=== PATIENT | female | born 1965 | race Caucasian/White ===

== ENCOUNTER → 2019-07-13 11:03 | Outpatient (CLI) | payer OTHER, SELFPAY ==
--- NOTE | ~2019-07-13 | MM_ITS ---
EXAMINATION: MM screening [facility] BI w [facility] HISTORY: Screening mammogram TECHNIQUE: Craniocaudal and mediolateral oblique 3-D tomosynthesis images were obtained and synthetic 2-D images were generated. CAD analysis was submitted and interpreted. COMPARISON: 07/06/2018, 06/01/2017, 05/05/2016 BREAST PARENCHYMAL COMPOSITION: The breasts are heterogeneously dense, which may obscure small masses . FINDINGS: There is no evidence of suspicious mass, calcification, or architectural distortion to sugg est malignancy in either breast. There has been no suspicious interval change. IMPRESSION: 1. No mammographic evidence of malignancy. 2. Recommend routine screening mammography in one year. BI-RADS Category 1: Negative Reviewed, dictated and finalized at location A.
--- NOTE | ~2019-07-13 | DEXA_ITS ---
Bone Density Report Name: Marycarmen Miguel Age: 53 Sex: Female Ethnicity: White Date of : 1965 Indication: postmenopausal; screening for osteoporosis; hysterectomy; Referring Provider: Yonis, Rayna Study: Bone densitometry was performed. Exam Date: July 13, 2019 Accession number: [id number] Bone Density: Region BMD T-score Z-score Classification AP Spine (L1-L4) 1.152 1.0 2.0 Normal Femoral Neck (Right) 0.941 0.8 1.9 Normal Total Hip (Right) 1.115 1.4 2.1 Normal World Health Organization criteria for BMD impression classify patients as: Normal (T-score at or above -1.0), Osteopenia (T-score between -1.0 and -2.5), or Osteoporosis (T-score at or below -2.5). 10-year Fracture Risk: FRAX not reported because: All T-scores for Spine Total, Hip Total, Femoral Neck at or above -1.0 Previous Exams: Region Exam Age BMD T-score BMD Change BMD Change Date g/cm2 vs Baseline vs Previous AP Spine(L1-L4) 07/13/2019 53 1.152 1.0 -0.046 -0.047 12/04/2015 50 1.200 1.4 0.002 0.002 10/04/2010 45 1.198 1.4 Total Hip(Right) 07/13/2019 53 1.115 1.4 -0.008 -0.024 12/04/2015 50 1.139 1.6 0.016 0.016 10/04/2010 45 1.123 1.5 *Denotes significance at 95% confidence level, LSC for AP Spine = 0.022 g/cm2, LSC for Total Hip = 0.027 g/cm2 Clinical Information Provided by Patient: Has used the following medications: Vitamin D, Calcium Has the following medical conditions: Hysterectomy Patient maximum height was 66.0 Menopause Age: 41 No regular weight bearing exercise Drinks caffeinated beverages Onset of menses at age 11 Number of children 1 Impression: The patient has normal bone mass. No significant bone loss was observed. Discussion: BONE DENSITY IS ABOVE THE MINIMUM DESIRABLE LEVEL AT ALL SKELETAL SITES TESTED. This patient?s bone mineral density is above the minimum desirable level (T-score -1.0 or better) at all sites measured. The patient should follow a healthful lifestyle (good nutrition with adequate calcium and vitamin D, and appropriate weight-bearing exercise). Follow-Up: Consider repeating this study in 5 years or sooner if there is some new clinical indication. Reported by: [facility] on 07/13/2019 11:53:00 AM. Reviewed, dictated and finalized at location Brian MUSTAFA
== END ==
PROVIDERS: Visit Provider Nurse Practitioner Family
DX: Z12.31 Encounter for screening mammogram for malignant neoplasm of breast (principal); Z78.0 Asymptomatic menopausal state
CPT/HCPCS: 77063; 77067; 77080

== ENCOUNTER → 2020-07-16 07:20 | Outpatient (CLI) | payer OTHER, SELFPAY ==
--- NOTE | ~2020-07-16 | MM_ITS ---
EXAMINATION: MM screening [facility] BI w [facility] HISTORY: Screening mammogram TECHNIQUE: Craniocaudal and mediolateral oblique 3-D tomosynthesis images were obtained and synthetic 2-D images were generated. CAD analysis was submitted and interpreted. COMPARISON: 07/13/2019, 07/06/2018, 06/01/2017 BREAST PARENCHYMAL COMPOSITION: There are scattered areas of fibroglandular density. FINDINGS: There is no evidence of suspicious mass, calcification, or architectural distortion to sugg est malignancy in either breast. There has been no suspicious interval change. IMPRESSION: 1. No mammographic evidence of malignancy. 2. Recommend routine screening mammography in one year. BI-RADS Category 1: Negative Reviewed, dictated and finalized at location A.
== END ==
PROVIDERS: Visit Provider Nurse Practitioner
DX: Z12.31 Encounter for screening mammogram for malignant neoplasm of breast (principal)
CPT/HCPCS: 77063; 77067

== ENCOUNTER → 2021-07-29 12:25 | Outpatient (CLI) | payer OTHER, SELFPAY ==
--- NOTE | ~2021-07-29 | MM_ITS ---
EXAMINATION: MM screening [facility] HISTORY: Screening TECHNIQUE: Craniocaudal and mediolateral oblique 3-D tomosynthesis images were obtained and synthetic 2-D images were generated. CAD analysis was submitted and interpreted. COMPARISON: Comparison to multiple prior studies sequentially, with oldest reviewed study dated 05/05. BREAST PARENCHYMAL COMPOSITION: There are scattered areas of fibroglandular density. FINDINGS: There is no evidence of suspicious mass, calcification, or architectural distortion to sugg est malignancy in either breast. There has been no suspicious interval change. IMPRESSION: 1. No mammographic evidence of malignancy. 2. Recommend routine screening mammography in one year. BI-RADS Category 1: Negative Reviewed, dictated and finalized at location A.
== END ==
PROVIDERS: PCP Family Medicine; Visit Provider Nurse Practitioner
DX: Z12.31 Encounter for screening mammogram for malignant neoplasm of breast (principal)
CPT/HCPCS: 77063; 77067

== ENCOUNTER → 2021-09-27 10:03 | Outpatient (CLI) | payer OTHER, SELFPAY ==
--- NOTE | ~2021-09-27 | XR_ITS ---
EXAM: XR wrist LT min 3V, XR wrist RT min 3V DATE: 09/27/2021 10:22 (accession [id number]), 09/27/2021 10:29 (accession [id number]) HISTORY: Primary osteoarthritis, bilateral wrists . COMPARISON: None available. FINDINGS: Normal mineralization. No fracture or dislocation. No lytic or blastic lesion. Mild joint space narrowing, sclerosis, and osteophytosis in the bilateral first CMC joints. Degenerative cyst fo rmation in the proximal carpal row bilaterally (proximal poles of the scaphoid bones, right capitate) . No erosion or periosteal change. Soft tissues within normal limits. IMPRESSION: Mild bilateral first CMC joint arthritis. Mild degenerative change in the proximal carpal rows bilaterally. Reviewed, dictated and finalized at location K. IMPRESSION: Mild bilateral first CMC joint arthritis. Mild degenerative change in the proximal carpal rows bilaterally.
== END ==
PROVIDERS: PCP Family Medicine; Visit Provider Plastic Surgery
DX: M19.031 Primary osteoarthritis, right wrist (principal); M19.032 Primary osteoarthritis, left wrist; M18.0 Bilateral primary osteoarthritis of first carpometacarpal joints
CPT/HCPCS: 73110

== ENCOUNTER 2021-11-23 07:03 | Day surgery (SDC) | payer OTHER, SELFPAY ==
[2021-10-08 14:07] VITALS: BMI 34.7
[2021-11-02 15:09] VITALS: BMI 35.6
--- NOTE | 2021-11-22 15:50 | WPDANESEPPF ---
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 Patient Data Age: 56 Gender: F Height: 1.65 m Weight: 97 kg Allergies Allergy/AdvReac Type Severity Reaction Status Date / Time Penicillins Allergy Intermediate hives Verified 11/23/21 07:48 Home Medications Medication Instructions Recorded Confirmed Type aspirin 81 mg tablet,delayed 81 mg PO DAILY 03/05/19 11/02/21 History release (Aspir-Low) cholecalciferol (vitamin D3) 1,250 50,000 unit PO WEEKLY #14 caps 04/24/19 11/02/21 Rx mcg (50,000 unit) capsule losartan 50 mg tablet 50 mg PO DAILY #90 tabs 06/25/21 11/02/21 Rx omeprazole 40 mg capsule,delayed 40 mg PO DAILY #90 caps 06/25/21 11/02/21 Rx release triamterene 37.5 1 cap PO DAILY #90 caps 06/25/21 11/02/21 Rx mg-hydrochlorothiazide 25 mg capsule triamcinolone acetonide 0.1 % 1 applic topical BID #80 grams 06/28/21 07/18/21 Rx topical cream rosuvastatin 20 mg tablet 20 mg PO DAILY #90 tabs 08/16/21 11/02/21 Rx celecoxib 100 mg capsule (Celebrex) 100 mg PO BID #180 caps 08/20/21 11/02/21 Rx ropinirole 0.5 mg tablet See Rx Instructions .Route 10/01/21 11/02/21 Rx .COMPLEX #180 tabs estradiol 0.5 mg tablet mg 11/02/21 11/02/21 History hydrocodone 5 mg-acetaminophen 325 1 tablet PO Q6H PRN pain #7 tabs 11/23/21 Rx mg tablet Patient hx anesthesia problems: none Family hx anesthesia problems: none Results Review: All pre-operative results and documents have been reviewed as part of the pre-operative evaluation. [facility] Past Medical History Medical History (Updated 11/22/21 @ 15:51 by Peter Jason DO) Arthritis, hip Chronic bilateral low back pain with left-sided sciatica Essential (primary) hypertension GERD (gastroesophageal reflux disease) Major depressive disorder, recurrent, moderate Menopausal and female climacteric states Mixed hyperlipidemia Obesity, unspecified Surgical History Surgical History History of carpal tunnel release History of hysterectomy History of lumbar discectomy Family History Family History Father Family history of elevated blood lipids Other Family history of cardiovascular disease Hypertension Malignant neoplasm of prostate Social History Social History (Updated 06/25/21 @ 08:46 by Sis Rebollar) Social History: Smoking packs per day: 1 Smoking cigarettes per day: 20.0 Years smoked: 20 Smoking pack-years: 20.00 Smoking status: Former smoker Tobacco type: cigarettes Second hand tobacco smoke exposure: No Smoking end date: 11/18/15 Alcohol intake: current Alcohol use details: rarely Substance use: never Substance use type: does not use Living arrangements: with family Additional living arrangements comments: pt lives with Gender identity (if verbalized by the patient): Female Sexual Orientation (if Verbalized by the Patient): Straight or Heterosexual Spiritual care concerns: No Anes - Eval Final PreProcedure Day of Procedure 11/22/21 15:50 Patient weight: obese Heart: regular rate and rhythm Lungs: clear to auscultation Airway: Mallampati scale class II Neurological: alert and oriented Last oral intake: >/= 8 hours ASA classification: III Emergent: no Anesthetic plan: proceed Anesthesia type and monitoring: general GIVS and standard monitoring Results Review: All pre-operative results and documents have been reviewed as part of the pre-operative evaluation. Informed Consent: The patient's anesthetic plan and its attendant risks and benefits were discussed with the patient/family/POA. Questions were solicited and answers provided
[2021-11-23 07:30] VITALS: BP 120/75; PULSE 75; RESP 20; TEMP 36.1; O2SAT 100
[2021-11-23 07:57] VITALS: BMI 34.4
[2021-11-23] MEDS: LACTATED RINGERS 1,000 ML 30 ML IV CONT (08:15)
--- NOTE | 2021-11-23 08:28 | WPDHPUPDATE1 ---
History and Physical Update Update Date/Time: 11/23/21 08:28 History and Physical has been reviewed, including an updated exam of the patient. There are NO changes in the patient's condition. Risks, benefits, and alternatives have been discussed and questions answered. Patient agrees to proceed with procedure.
[2021-11-23] MEDS: LIDO 1%/EPINEPHRINE 1:100,000 20 ML VIAL 6 ML INFILTRATE (09:09)
[2021-11-23 09:19] VITALS: BP 125/67; PULSE 77; RESP 16; O2SAT 94
--- NOTE | 2021-11-23 09:32 | W.PM.PROC2 ---
Procedure Note - Detailed Date of Procedure 11/23/21 Pre-op Diagnosis Bialteral Carpal Tunnel Syndrome Post-op Diagnosis Same Procedure Performed bilateral open carpal tunnel release Surgeon Simeon Jaime MD [employer] [place] [facility] MAC Description of Procedure the 2 sites over the carpal canal were marked on the patient in the holding area. she was taken to the operating room where she was placed supine on the operating table. He was given IV sedation and the 2 extremities were prepped on separate hand tables. Both sites were marked for the incision and locally infiltrated with 1% lidocaine with epinephrine. Surgery was begun on the right side where the incision was made as marked after elevating the tourniquet to 250 mmHg. The incision was continued with blunt dissection to the palmar aponeurosis. This was mostly scar by tissue and and a 15 blade was used to incise carefully into the carpal canal. The reconstructed tissue in this area was incised distally and proximally to completely release it. We did not see any obviously untreated retinacular ligament tissue. there was no significant scarring within the canal it appeared. We closed this wound with interrupted 5 0 nylon suture. A small bandage with Josiah wrap was applied and the tourniquet was released. Attention was turned to the left side the incision was again made as marked after elevation of the tourniquet to 250 mmHg. The dissection was carried through the previously operated scar tissue until the canal was opened. Under 3 point retraction the canal was opened distally and then proximally exposing the contents. There was no significant scarring within that. We proceeded to close the wound with interrupted 5 0 nylon suture. The usual bandage was applied. The tourniquet was released. The patient was discharged from the operating room stable condition. She is discharged with a prescription for hydrocodone acetaminophen number 7 Estimated Blood Loss 0 Drains No Packing No Pathology None sent Complications No immediate complications Condition Stable Disposition Same day
--- NOTE | 2021-11-23 09:36 | WPDANESPN ---
Anes - Prog Note Post-Op Date/Time: 11/23/21 09:36 Cardiovascular status: normal Respiratory status: normal Airway patency: baseline Mental status: baseline Post-Op hydration status: normal Vital Signs: Last Vital Signs Temp 36.1 C L 11/23/21 07:30 Pulse 77 11/23/21 09:19 Resp 16 11/23/21 09:19 BP 125/67 11/23/21 09:19 Pulse Ox 94 11/23/21 09:19 O2 Del Method Room Air 11/23/21 09:19 Pain Score (VAS): 0 Post-procedural complaints: none Patient Feedback: Patient satisfied with anesthetic care. Other Findings: Patient vital signs back to baseline. Patient denies nausea and vomiting. Patient's pain under control. Patient OK for discharge.
--- NOTE | 2021-11-23 09:43 | SUR.PHASEII ---
PT AWAKE AND ALERT. DENIES PAIN OR NAUSEA. EATING CRACKERS AND TAKING PO FLUIDS. SPOUSE AT BEDSIDE
[2021-11-23 09:44] VITALS: BP 137/71; PULSE 70; RESP 16; O2SAT 96
--- NOTE | 2021-11-23 09:52 | SUR.PHASEII ---
PT AWAKE AND ALERT. DENIES PAIN OR NAUSEA. MEETS DISCHARGE CRITERIA.
== END 2021-11-23 10:04 | disposition home or self-care (01) ==
PROVIDERS: PCP Family Medicine; Visit Provider Plastic Surgery
PROC: (CPT 64721; principal; 2021-11-23 08:45)
DX: G56.01 Carpal tunnel syndrome, right upper limb (principal); G56.02 Carpal tunnel syndrome, left upper limb
CPT/HCPCS: 64721 ×2

== ENCOUNTER 2022-05-26 02:04 | Day surgery (SDC) | payer OTHER, SELFPAY ==
[2022-05-18 09:47] VITALS: BMI 32.9
--- NOTE | 2022-05-18 09:52 | PC.NURSE ---
Report to the Outpatient Waiting Room, entrance under the green pavilion located off [facility], at time 6:30 on date 05/26/22. Planned Procedure Time: 8:30. Time changes happen often and if your time is changed the preop area will call you the afternoon before. - You and your visitor will be asked to self-screen and do not enter if you have any COVID symptoms. - Only one visitor is requested with a max of two and NO children visitors are allowed at this time. - The patient visitor may be requested to leave or wait in car when not with patient due to distancing restrictions. - A mask is optional within the hospital at this time. Patients may have clear liquids (water, carbonated beverages, clear teas, apple juice) until 3 hours prior to surgery (5:30) with a maximum of 20 ounces. - No food from midnight until time of surgery Take the following medications with a SIP of water the morning of surgery: FLUOXETINE, BUSPIRONE DO NOT STOP ANY OF YOUR OTHER PRESCRIPTION MEDICATIONS PRIOR TO SURGERY?EXCEPT THE FOLLOWING Medications to discontinue per physician: VITAMINS/SUPPLEMENTS Date to take last dose: 05/22/[address] EDOUARD'S INSTRUCTIONS ABOUT CELEBREX Please no make-up, nail kyrgyz, hairspray, perfume, deodorant, or body powder the day of surgery. No jewelry (including any body piercings) or valuables the day of surgery, leave them at home. Please take a shower or bath the night before, or the morning of, surgery with an antibacterial soap. Wear comfortable, loose fitting clothing. - Jewelry must be removed prior to entering the operating room. Rings and piercings that are not removed may be cut off. - The hospital will not accept responsibility for valuables. - Please leave all valuables, including medications, at home the day of surgery. If you are going home after surgery, a licensed cryogenic transport driver must drive you home. - NO public transportation without another adult if you receive anesthesia. - We recommend that an adult stay with you for 24 hours following discharge. - We also recommend that you do not drive, make important decision, drink alcoholic beverages, or take any drugs that were not prescribed by your health care provider for at least 24 hours after your discharge time. Follow any additional instructions given to you from your surgeon. If you or anyone in your household have experienced Covid symptoms in the past week, please notify your surgeon or the nurse liaison at the phone number below for possible testing. Telephone instructions given to ANA MAK and asked if any additional questions and then verbalized understanding. Patient advised to call surgeon office or pre surgery nurse liaison [phone] if any additional questions.
[2022-05-26] VITALS (8 sets, daily range): BP systolic 95–153; BP diastolic 60–95; PULSE 72–92; RESP 11–18; TEMP 36.6–36.7; O2SAT 92–100
--- NOTE | ~2022-05-26 | XR_ITS ---
EXAMINATION: XR surgery orthopedic DATE: 05/26/2022 09:30 INDICATION: Osteoarthritis of left first carpometacarpal joint. TECHNIQUE: 31 intraoperative fluoroscopic views of left hand were obtained. I was not present. Fluoro scopy exposure time was 1 minute 3 seconds. COMPARISON: Left wrist radiograph 09/27/2021 FINDINGS: There are changes of resection of trapezium. There are tunnels in second and third metacarp als. IMPRESSION: 1. Changes of left trapezium resection arthroplasty. Reviewed, dictated and finalized at location A. RIDER
[2022-05-26] MEDS: ACETAMINOPHEN 500 MG TABLET 1000 MG PO (06:40)
--- NOTE | 2022-05-26 07:13 | WPDHPUPDATE1 ---
History and Physical Update Update Date/Time: 05/26/22 07:13 History and Physical has been reviewed, including an updated exam of the patient. There are NO changes in the patient's condition. Risks, benefits, and alternatives have been discussed and questions answered. Patient agrees to proceed with procedure.
[2022-05-26] MEDS: LACTATED RINGERS 1,000 ML 30 ML IV CONT (07:17)
--- NOTE | 2022-05-26 07:46 | WPDANESEPPF ---
Anes - Initial Pre Proc Eval Procedure: Operation Date: 05/26/22 08:30 Proposed Procedures p Left Trapezium Resection Arthroplasty with Arthrex Internal Brace - Simeon Jaime MD Date/Time: 05/26/22 07:46 Surgeon: Simeon Jaime MD Pre Op Diagnosis: Lt First Carpometacarpal Joint O A Patient Data Age: 56 Gender: F Height: 1.68 m Weight: 92.9 kg Last Vital Signs Temp 36.7 C 05/26/22 07:12 Pulse 80 05/26/22 07:12 Resp 16 05/26/22 07:12 BP 124/89 05/26/22 07:12 Pulse Ox 98 05/26/22 07:12 O2 Del Method Room Air 05/26/22 07:12 Allergies Allergy/AdvReac Type Severity Reaction Status Date / Time Penicillins Allergy Intermediate hives Verified 05/26/22 06:38 Home Medications Medication Instructions Recorded Confirmed Type aspirin 81 mg tablet,delayed 81 mg PO DAILY 03/05/19 05/18/22 History release (Aspir-Low) cholecalciferol (vitamin D3) 1,250 50,000 unit PO WEEKLY #14 caps 04/24/19 05/18/22 Rx mcg (50,000 unit) capsule triamcinolone acetonide 0.1 % 1 applic topical BID #80 grams 06/28/21 05/18/22 Rx topical cream estradiol 0.5 mg tablet (Estrace) 0.5 mg PO DAILY 11/02/21 05/18/22 History rosuvastatin 20 mg tablet See Rx Instructions .Route 12/21/21 05/18/22 Rx .COMPLEX #90 tabs triamterene 37.5 1 cap PO DAILY #90 caps 01/31/22 05/18/22 Rx mg-hydrochlorothiazide 25 mg capsule fluoxetine 20 mg capsule 20 mg PO DAILY #90 caps 02/03/22 05/18/22 Rx losartan 50 mg tablet See Rx Instructions .Route 03/15/22 05/18/22 Rx .COMPLEX #90 tabs omeprazole 40 mg capsule,delayed See Rx Instructions .Route 03/27/22 05/18/22 Rx release .COMPLEX #90 caps ropinirole 3 mg tablet 3 mg PO QHS #90 tabs 05/02/22 05/18/22 Rx buspirone 5 mg tablet See Rx Instructions .Route 05/03/22 05/18/22 Rx .COMPLEX #60 tabs celecoxib 100 mg capsule See Rx Instructions .Route 05/13/22 05/18/22 Rx .COMPLEX #180 caps Patient hx anesthesia problems: none Family hx anesthesia problems: none Results Review: All pre-operative results and documents have been reviewed as part of the pre-operative evaluation. [facility] Past Medical History Medical History Arthritis, hip Chronic bilateral low back pain with left-sided sciatica Essential (primary) hypertension GERD (gastroesophageal reflux disease) Major depressive disorder, recurrent, moderate Menopausal and female climacteric states Mixed hyperlipidemia Obesity, unspecified Surgical History Surgical History History of carpal tunnel release History of hysterectomy History of lumbar discectomy History of total left hip arthroplasty (~2018) Family History Family History Father Family history of elevated blood lipids Other Family history of cardiovascular disease Hypertension Malignant neoplasm of prostate Social History Social History Social History: Smoking packs per day: 1 Smoking cigarettes per day: 20.0 Years smoked: 20 Smoking pack-years: 20.00 Smoking status: Former smoker Tobacco type: cigarettes Second hand tobacco smoke exposure: No Smoking end date: 04/17/13 Alcohol intake: current Drinks per week: 2 Alcohol use details: rarely Substance use: never Substance use type: does not use Lack of Transportation: No Lack of Food: Never True Current Housing: I Have Housing Concerned About Future Housing: No Difficulty Paying Gas/Electric Bills: No Difficulty Paying for Meds: No Currently Unemployed: No Education: High School Diploma/GED Difficulty w/ Childcare or Family Care: No Living arrangements: with family Additional living arrangements comments: pt lives with Occupation/Education: retired Gender identity (if verbalized by the patie
[2022-05-26] MEDS: ceFAZolin 2 GM/D5W 50 ML 2 GM/50 ML BAG IVPB (08:02)
[2022-05-26] MEDS: BUPivacaine HCL 0.5% PF 30 ML VIAL INFILTRATE (09:23)
[2022-05-26] MEDS: BACITRACIN OINTMENT 15 GM TUBE 1 APPLIC TOPICAL (09:23)
[2022-05-26] MEDS: fentaNYL CITRATE INJ (*CRX) 100 MCG/2 ML VIAL 25 MCG IV PUSH ×8 (09:45→10:05)
--- NOTE | 2022-05-26 10:11 | P.OP_ITS ---
Procedure Note - Detailed Date of Procedure 05/26/22 Pre-op Diagnosis Lt First Carpometacarpal Joint O A Post-op Diagnosis Same Procedure Performed Left trapezium resection arthroplasty Arthrex internal brace Surgeon Simeon Jaime MD [employer] [place] Anesthesia General Indications Pain unresponsive to cortisone injection Description of Procedure The metacarpal the anchor site was identified and drilled and the suture lock placed there over the suture tape. This was secure and the FiberTape The patient's left basal joint was marked with her consent the holding area. She was taken to the operating room where she was placed supine on the operating table she was given general anesthesia and the left upper extremity was prepped and draped in usual fashion. The site was marked for the incision. It was locally infiltrated with 1% lidocaine with epinephrine. The extremity was exsanguinated and the tourniquet inflated 250 mmHg. The incision was made as marked on the radial base of the thumb. A dissection through the subcutaneous tissue revealed a large cutaneous nerve. This was mobilized and retained dorsally throughout the procedure. The interspace between extensor pollicis brevis and abductor pollicis longus was incised to access the trapezial metacarpal joint. Soft tissue was sharply debrided away from both bones exposing the joint and the trapezium. The trapezium was removed piecemeal with a McGlamry elevator and a rongeur. The entire space was cleared of bone. This was confirmed with C-arm images. The appropriate site at the radial base of the 2nd metacarpal was identified with the images of a C-wire . Using Arthrex technique the bone fenestration was made at that level through both cortices. The threaded guide was passed over that and advanced into the bone to the far cortex. The C-wire was removed and the fiber lock material past through the cannula. The placement device was removed and the a FiberTak was set with tension. The cannula was removed and the FiberTak remained in place. The site for the anchor placement on the radial base of the 1st metacarpal was identified and guidewire was placed. The drill guide and drill were passed over the C-wire. The guided C-wire were removed and the anchor placed over the suture tape and position satisfactorily. Images were made to confirm this. The site was irrigated to the capsular tissue was repaired with 3-0 Vicryl. The tourniquet was released. The skin was closed with 3-0 Vicryl and glue. A soft bandage and thumb spica splint was applied. The site had been additionally anesthetized with Marcaine 0.5% plain. Implants Arthrex SutureTape Estimated Blood Loss 5 Tourniquet Time 59 Drains No Packing No Pathology None sent Complications No immediate complications Condition Stable Disposition PACU
[2022-05-26] MEDS: HYDROmorphone HCL INJ (*CRX) 1 MG/ML SYR IV PUSH (10:17)
[2022-05-26] MEDS: oxyCODONE HCL (*CRX) 5 MG TAB IR PO (10:46)
== END 2022-05-26 11:30 | disposition home or self-care (01) ==
PROVIDERS: PCP Physician Assistant; Visit Provider Plastic Surgery
PROC: (CPT 25447; principal; 2022-05-26 08:30)
DX: M18.12 Unilateral primary osteoarthritis of first carpometacarpal joint, left hand (principal); I10 Essential (primary) hypertension; K21.9 Gastro-esophageal reflux disease without esophagitis; E78.2 Mixed hyperlipidemia; F33.1 Major depressive disorder, recurrent, moderate; E66.9 Obesity, unspecified; Z68.33 Body mass index [BMI] 33.0-33.9, adult; Z87.891 Personal history of nicotine dependence; Z79.82 Long term (current) use of aspirin
CPT/HCPCS: 25447; 99199; A9270; C1713; J0690; J1100; J1170; J2405; J2704; J3010; J7120

== ENCOUNTER → 2022-08-02 10:07 | Outpatient (CLI) | payer OTHER, SELFPAY ==
--- NOTE | ~2022-08-02 | MM_ITS ---
EXAMINATION: MM screening [facility] BI w [facility] HISTORY: Screening mammogram TECHNIQUE: Craniocaudal and mediolateral oblique 3-D tomosynthesis images were obtained and synthetic 2-D images were generated. CAD analysis was submitted and interpreted. COMPARISON: 07/29/2021, 07/16/2020, 07/13/2019 BREAST PARENCHYMAL COMPOSITION: There are scattered areas of fibroglandular density. FINDINGS: No suspicious mass, calcification, or architectural distortion are identified in either pearl ast to suggest malignancy. There has been no suspicious interval change. IMPRESSION: 1. No mammographic evidence of malignancy. 2. Recommend routine screening mammography in one year. BI-RADS Category 1: Negative Reviewed, dictated and finalized at location A.
== END ==
PROVIDERS: PCP Family Medicine; Visit Provider Nurse Practitioner
DX: Z12.31 Encounter for screening mammogram for malignant neoplasm of breast (principal)
CPT/HCPCS: 77063; 77067

== ENCOUNTER 2023-08-21 13:29 | Outpatient (CLI) | payer MEDICARE, SELFPAY ==
--- NOTE | ~2023-08-21 | MM_ITS ---
EXAMINATION: MM screening donny BI w bishop HISTORY: Screening mammogram TECHNIQUE: Craniocaudal and mediolateral oblique 3-D tomosynthesis images were obtained and synthetic 2-D images were generated. CAD analysis was submitted and interpreted. COMPARISON: August 02, 2022, July 29, 2021 bilateral screening mammogram examinations BREAST PARENCHYMAL COMPOSITION: There are scattered areas of fibroglandular density. FINDINGS: There is no evidence of suspicious mass, calcification, or architectural distortion to sugg est malignancy in either breast. There has been no suspicious interval change. IMPRESSION: 1. No mammographic evidence of malignancy. 2. Recommend routine screening mammography in one year. BI-RADS Category 1: Negative Reviewed, dictated and finalized at location B.
== END 2023-08-21 13:30 ==
LOC: MICIMG 13:32
PROVIDERS: PCP Nurse Practitioner; Visit Provider Nurse Practitioner
DX: Z12.31 Encounter for screening mammogram for malignant neoplasm of breast (principal)
CPT/HCPCS: 77063; 77067

== ENCOUNTER 2024-03-28 00:28 | Day surgery (SDC) | payer MEDICARE, SELFPAY ==
[2024-03-11 09:39] VITALS: BMI 27.5
[2024-03-28 07:37] VITALS: BP 120/80; PULSE 93; RESP 18; TEMP 36.4; O2SAT 100
[2024-03-28] MEDS: LACTATED RINGERS 1,000 ML 150 ML IV CONT ×2 (07:52→09:48)
--- NOTE | 2024-03-28 08:31 | P.PNAN_ITS ---
Anes - Initial Pre Proc Eval Procedure: Operation Date: 03/28/24 09:00 Proposed Procedures p Esophagogastroduodenoscopy & Colonoscopy - Robbie Teran MD Date/Time: 03/28/24 08:31 Surgeon: Robbie Teran MD Pre Op Diagnosis: abn weight loss, iron deficiency, slow transit Patient Data Age: 58 Gender: F Height: 1.65 m Weight: 74.5 kg Last Vital Signs Temp 97.6 F 03/28/24 07:37 Pulse 93 03/28/24 07:37 Resp 18 03/28/24 07:37 BP 120/80 03/28/24 07:37 Pulse Ox 100 03/28/24 07:37 O2 Del Method Room Air 03/28/24 07:37 Allergies Allergy/AdvReac Type Severity Reaction Status Date / Time Penicillins Allergy Intermediate hives Verified 03/11/24 09:35 Home Medications ?Medication ?Instructions ?Recorded ?Confirmed ?Type aspirin 81 mg tablet,delayed 81 mg PO DAILY 03/05/19 03/28/24 History release (Aspir-Low) cholecalciferol (vitamin D3) 1,250 50,000 unit PO WEEKLY #14 caps 04/24/19 03/28/24 Rx mcg (50,000 unit) capsule estradiol 0.5 mg tablet (Estrace) 0.5 mg PO DAILY 11/02/21 03/28/24 History omega-3 fatty acids 1,000 mg 1,000 mg PO DAILY 01/06/23 03/28/24 History capsule pramipexole 0.25 mg tablet 0.25 mg PO BID #180 tabs 10/10/23 03/28/24 Rx fluoxetine 40 mg capsule See Rx Instructions .Route 11/07/23 03/11/24 Rx .COMPLEX #90 caps rosuvastatin 40 mg tablet See Rx Instructions .Route 12/21/23 03/28/24 Rx .COMPLEX #90 ea Bacillus coagulans 10 billion cell 1 cell PO DAILY 02/20/24 03/28/24 History capsule,delayed release (Probiotic (B. coagulans)) losartan 50 mg tablet 25 mg PO DAILY 02/20/24 03/28/24 History triamterene 37.5 1 cap PO DAILY 02/20/24 03/28/24 History mg-hydrochlorothiazide 25 mg capsule minoxidil 2.5 mg tablet 1.25 mg PO DAILY 03/11/24 03/28/24 History triamcinolone acetonide 0.1 % See Rx Instructions .Route 03/11/24 03/28/24 History topical cream .COMPLEX PRN Rash omeprazole 40 mg capsule,delayed See Rx Instructions .Route 03/27/24 03/28/24 Rx release .COMPLEX #90 caps Patient hx anesthesia problems: none Family hx anesthesia problems: none Results Review: All pre-operative results and documents have been reviewed as part of the pre- operative evaluation. 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 Essential (primary) hypertension Fluid retention in legs GERD (gastroesophageal reflux disease) Major depressive disorder, recurrent, moderate Menopausal and female climacteric states Mixed hyperlipidemia Obesity, unspecified Urinary tract infection, site not specified Surgical History Surgical History History of carpal tunnel release History of hysterectomy History of lumbar discectomy History of total left hip arthroplasty (~2019) Family History Family History Father Family history of elevated blood lipids Other Family history of cardiovascular disease Hypertension Malignant neoplasm of prostate Social History Social History Social History: Smoking packs per day: 1 Smoking cigarettes per day: 20.0 Years smoked: 20 Smoking pack-years: 20.00 Smoking status: Former smoker Tobacco type: cigarettes Second hand tobacco smoke exposure: No Smoking end date: 04/17/13 Alcohol intake: current Alcohol use details: rarely Substance use: never Substance use type: does not use Do You Feel Safe in your Home?: Yes Lack of Transportation: No Lack of Food: Never True Current Housing: I Have Housing Concerned About Future Housing: No Difficulty Paying Gas/Electric Bills: No Difficulty Paying for Meds: No Currently Unemployed: No Education: High School Diploma/GED Difficulty w/ Childcare or Family Care: No Living arrangements: with family Additional living arrangements comments: pt lives with Occupation/Education: retired Gender identity (if verbalized by the patient): Female Sexual Orientation (if Verbalized by the Patient): Straight or Heterosexual Spiritual care concerns: No Anes - Eval Final PreProcedure Day of Procedure 03/28/24 08:31 Patient weight: normal Heart: regular rate and rhythm Lungs: clear to auscultation Airway: Mallampati scale class II Neurological: alert and oriented Last oral intake: >/= 8 hours ASA classification: III Emergent: no Anesthetic plan: proceed Anesthesia type and monitoring: general GIVS and standard monitoring Results Review: All pre-operative results and documents have been reviewed as part of the pre- operative evaluation. Informed Consent: The patient's anesthetic plan and its attendant risks and benefits were discussed with the patient/family/POA. Questions were solicited and answers provided to the satisfaction of the patient/family/POA.
--- NOTE | 2024-03-28 08:47 | PM.IMHP ---
H&P: HPI History of Present Illness Date/Time: 03/28/24 08:47 Chief Complaint: abdominal pain - GERD Narrative: Patient states that she has lost 38 pounds, going from 203 pounds to 165-166 pounds over the past 2-3 months. In the beginning, she had no appetite and was never hungry. Patient admits to occasional left lower quadrant pain that occurs prior to bowel movements but resolves after bowel movements. She has occasional abdominal bloating that occurs when she is constipated. She is on omeprazole 40 mg daily and reflux is well controlled. She is referred for EGD and colonoscopy to investigate weight loss. 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 Essential (primary) hypertension Fluid retention in legs GERD (gastroesophageal reflux disease) Major depressive disorder, recurrent, moderate Menopausal and female climacteric states Mixed hyperlipidemia Obesity, unspecified Urinary tract infection, site not specified Surgical History Surgical History History of carpal tunnel release History of hysterectomy History of lumbar discectomy History of total left hip arthroplasty (~2019) Family History Family History Father Family history of elevated blood lipids Other Family history of cardiovascular disease Hypertension Malignant neoplasm of prostate Social History Social History Social History: Smoking packs per day: 1 Smoking cigarettes per day: 20.0 Years smoked: 20 Smoking pack-years: 20.00 Smoking status: Former smoker Tobacco type: cigarettes Second hand tobacco smoke exposure: No Smoking end date: 04/17/13 Alcohol intake: current Alcohol use details: rarely Substance use: never Substance use type: does not use Do You Feel Safe in your Home?: Yes Lack of Transportation: No Lack of Food: Never True Current Housing: I Have Housing Concerned About Future Housing: No Difficulty Paying Gas/Electric Bills: No Difficulty Paying for Meds: No Currently Unemployed: No Education: High School Diploma/GED Difficulty w/ Childcare or Family Care: No Living arrangements: with family Additional living arrangements comments: pt lives with Occupation/Education: retired Gender identity (if verbalized by the patient): Female Sexual Orientation (if Verbalized by the Patient): Straight or Heterosexual Spiritual care concerns: No Meds Home Medications and Allergies Home Medications ?Medication ?Instructions ?Recorded ?Confirmed ?Type aspirin 81 mg tablet,delayed 81 mg PO DAILY 03/05/19 03/28/24 History release (Aspir-Low) cholecalciferol (vitamin D3) 1,250 50,000 unit PO WEEKLY #14 caps 04/24/19 03/28/24 Rx mcg (50,000 unit) capsule estradiol 0.5 mg tablet (Estrace) 0.5 mg PO DAILY 11/02/21 03/28/24 History omega-3 fatty acids 1,000 mg 1,000 mg PO DAILY 01/06/23 03/28/24 History capsule pramipexole 0.25 mg tablet 0.25 mg PO BID #180 tabs 10/10/23 03/28/24 Rx fluoxetine 40 mg capsule See Rx Instructions .Route 11/07/23 03/11/24 Rx .COMPLEX #90 caps rosuvastatin 40 mg tablet See Rx Instructions .Route 12/21/23 03/28/24 Rx .COMPLEX #90 ea Bacillus coagulans 10 billion cell 1 cell PO DAILY 02/20/24 03/28/24 History capsule,delayed release (Probiotic (B. coagulans)) losartan 50 mg tablet 25 mg PO DAILY 02/20/24 03/28/24 History triamterene 37.5 1 cap PO DAILY 02/20/24 03/28/24 History mg-hydrochlorothiazide 25 mg capsule minoxidil 2.5 mg tablet 1.25 mg PO DAILY 03/11/24 03/28/24 History triamcinolone acetonide 0.1 % See Rx Instructions .Route 03/11/24 03/28/24 History topical cream .COMPLEX PRN Rash omeprazole 40 mg capsule,delayed See Rx Instructions .Route 03/27/24 03/28/24 Rx release .COMPLEX #90 caps Allergies Allergy/AdvReac Type Severity Reaction Status Date / Time Penicillins Allergy Intermediate hives Verified 03/11/24 09:35 Vital Signs Vital Signs - 24 hr 03/28/24 07:37 Temperature 97.6 F Pulse Rate 93 Respiratory Rate 18 Blood Pressure 120/80 Pulse Oximetry 100 Oxygen Delivery Room Air Exam Const: General: cooperative and healthy appearing Resp: Effort & Inspection: normal respiratory effort and able to speak in complete sentences Auscultation: clear to auscultation bilaterally Cardio: Rate: regular rate Rhythm: regular rhythm GI: Inspection: normal to inspection GI Palp: No No hepatosplenomegaly present Auscultation: normal bowel sounds Rectal Exam: deferred Skin: General skin exam: normal color Psych: Appearance: grossly normal Mental Status: mental status grossly normal Assessment and Plan Assessment and plan (1) GERD (gastroesophageal reflux disease): Qualifiers: Esophagitis presence: esophagitis presence not specified Qualified Code(s): K21.9 - Gastro-esophageal reflux disease without esophagitis Code(s): K21.9 - Gastro-esophageal reflux disease without esophagitis Status: Acute Assessment and Plan: The patient is deemed a good candidate for the procedures. Consent signed. Will proceed. (2) Weight loss: Code(s): R63.4 - Abnormal weight loss Status: Acute
[2024-03-28] MEDS: BENZOCAINE (*SP) 60 ML SPRAY CAN (HURRICAINE) 1 SPRAY MUCOUS MEM (08:53)
--- NOTE | 2024-03-28 09:40 | SUR.OPER ---
EGD [id number]. Colonoscopy start time 938.
[2024-03-28 09:54] VITALS: BP 108/50; PULSE 75; RESP 18; O2SAT 100
[2024-03-28 10:04] VITALS: BP 97/58; PULSE 75; RESP 20; O2SAT 100
[2024-03-28 10:14] VITALS: BP 116/66; PULSE 77; RESP 202; O2SAT 100
== END 2024-03-28 10:29 | disposition home or self-care (01) ==
PROVIDERS: PCP Family Medicine; Referring Provider Nurse Practitioner Family; Visit Provider Internal Medicine Gastroenterology
PROC: 0DJ08ZZ Inspection of Upper Intestinal Tract, Via Natural or Artificial Opening Endoscopic (ICD-10-PCS; CPT 43235; principal; 2024-03-28 09:00)
DX: K31.7 Polyp of stomach and duodenum (principal); K29.50 Unspecified chronic gastritis without bleeding; K21.9 Gastro-esophageal reflux disease without esophagitis; I10 Essential (primary) hypertension; E78.2 Mixed hyperlipidemia; F33.8 Other recurrent depressive disorders; E61.1 Iron deficiency; M16.10 Unilateral primary osteoarthritis, unspecified hip; G89.29 Other chronic pain; M54.42 Lumbago with sciatica, left side; Z79.82 Long term (current) use of aspirin; Z98.890 Other specified postprocedural states; Z98.1 Arthrodesis status; Z96.642 Presence of left artificial hip joint; Z87.891 Personal history of nicotine dependence; Z80.42 Family history of malignant neoplasm of prostate; Z82.49 Family history of ischemic heart disease and other diseases of the circulatory system
CPT/HCPCS: 43236; 43239; 43251; 45378; 88305; J2003; J2704; J7120

== ENCOUNTER 2024-06-24 09:43 | Outpatient (CLI) | payer MEDICARE, SELFPAY ==
--- NOTE | ~2024-06-24 | XR_ITS ---
XR hand RT min 3V Ordering provider: Tim Zamarripa MD History: . 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 . Comparison: None. FINDINGS: BONES: No acute fracture or dislocation. JOINT SPACES: Mild osteoarthritic changes of the first carpometacarpal joint. Osteoarthritic changes of the proximal and distal interphalangeal joints are not excluded. SOFT TISSUES: Normal. IMPRESSION: No acute osseous abnormality right hand. Polyarticular osteoarthritic changes. Reviewed, dictated and finalized at location A.
--- OUTSIDE RECORDS SUMMARY | 2024-06-24 11:02 | XMS_ITS | Referral Summary ---
Author Organization [facility] Address [address] [place] [address] Care Team Providers Care Grinder Chipper Name Role Phone Mariam Fierro MD Primary Care Provider U okailelena Source Comments [facility],non-owned Affiliates and Associated Physician Practices is amultiple site organization consisting of ambulatory clinics and hospital sitesin [place], [place], [place] and [place]. This disclosure is being madepursuant to the Care Everywhere program and may not contain all information available regarding this patient. Last updated 18.[facility] Allergies Active Allergy Reactions Criticality Noted Date Comments Penicillins Urticaria 06/22/2015 Medications * Be aware that medications may not be up to date on this document. Alwaysverify current medications with the patient. Medication Sig Dispensed Refills Start Date End Date Status atorvastatin (LIPITOR) 40 MG tablet Take 40 mg by mouth at bedtime 06/03/2015 Active vitamin D, ergocalciferol, (DRISDOL) 24001 UNITS capsule 04/27/2015 Active estradiol (ESTRACE) 0.5 MG tablet 06/03/2015 Active estradiol (ESTRACE) 1 MG tablet 05/22/2015 Active hydrochlorothiazide (HYDRODIURIL) 25 MG tabletIndications:Ed jovanny Take 25 mg by mouth once daily Reasons: Edema 05/13/2015 Active nortriptyline (PAMELOR) 25 MG capsuleIndications:D epression Take 25 mg by mouth 3 times daily Reasons: Depression 04/27/2015 Active omeprazole (PRILOSEC) 40 MG capsule 03/20/2015 Active Xorrwsw-Hfpkizxvl-Aq tamin D (CALCIUM 1200+D3 PO) Take 1 Tab by mouth once daily Active aspirin (ASPIRIN) 81 MG tablet Take 81 mg by mouth once daily Active methocarbamol (ROBAXIN) 500 MG tablet Take 1 Tab by mouth every 6 hours as needed for Muscle Spasms 40 Tab 1 08/06/2015 Active diclofenac sodium EC (VOLTAREN) 75 MG tablet Take 1 Tab by mouth 2 times daily 60 Tab 1 08/06/2015 Active HYDROcodone-acetamin ophen (NORCO) 5-325 MG tablet Take 1 Tab by mouth every 4 hours as needed for Pain 50 Tab 0 08/17/2015 Active Active Problems Problem Noted Date Diagnosed Date Smoking Social History Tobacco Use Types Packs/Day Years Used Date Smoking Tobacco: Every Day Cigarettes 0.5 34.2 Started: 04/17/1990 Smokeless Tobacco: Never Tobacco Cessation:Ready to Q uit: No; Counseling Given: Yes Alcohol Use Standard Drinks/Week Comments No 0 (1 standard drink = 0.6 oz pur e alcohol) Sex and Gender Information Value Date Recorded Sex Assigned at Not on file Gender Identity Not on file Sexual Orientation Not on file Last Filed Vital Signs Vital Sign Reading Time Taken Comments Blood Pressure 129/91 08/06/2015 4:31 PM CDT Pulse 109 08/06/2015 4:31 PM CDT Temperature 36.7 C (98.1 F) 08/06/2015 4:31 PM CDT Respiratory Rate 18 08/06/2015 4:31 PM CDT Oxygen Saturation 94% 08/06/2015 4:31 PM CDT Inhaled Oxygen Concentration - - Weight 86.2 kg (190 lb) 08/17/2015 9:56 AM CDT Height 167.6 cm (5' 6 ) 08/17/2015 9:56 AM CDT Body Mass Index 30.67 08/17/2015 9:56 AM CDT Functional Status Functional Status Response Date of Assess ment Is person deaf or have serious hearing difficult y? No 08/06/2015 Is person blind or have serious difficulty seein g? No 08/06/2015 Does person have serious dif ficulty walking/climbing stairs? Yes 08/06/2015 Does person have difficulty dressing/bathing? Ye s 08/06/2015 Does person have difficulty doing errands alone? No 08/06/2015 Cognitive Status Response Date of Assessm ent Does person have difficulty concentrating/remembering/making decisions? Yes 08/06/2015 Plan of Treatment Not on file Advance Directives * Full Code (Latest Code Status on File) Date Activated Date Inactivated Comments 08/06/2015 11:57 AM 08/06/2015 8:42 PM Care Teams Grinder Chipper Relationship Specialty Start Date End Date Mariam Fierro MD [address] [place] [address] PCP - General Family Medicine 06/17/15
--- OUTSIDE RECORDS SUMMARY | 2024-06-24 11:02 | XMS_ITS | Continuity of Care Document ---
Author Organization [facility] Address [address] [place] [address] Phone Care Team Providers Care Residential Framing Carpenter Name Role Phone Jf Rosa MD Unavailable Unavailable Advance Directives Directive Yes / No Effective Date File Name No Information Encounters Encounter Description Practice Location Reason(s) For Visit Diagnoses Date Provider Providers Copied on Encounter [facility], [address], [place], [place], [id number], [place] tel:[phone] [facility] No Information Jun- 5-200 5 Shelley Rhoades. [address], [place], [place], [id number], [place]. tel:[phone] Family History Family Member Type Diagnosis Age At Onset No Information Payers Payer name Insurance type Covered republican ID Authoriza tion(s) No Information Social History Type Description Quantity Date Captured Comments Sex Female Smoking Status No Information Chief Complaint And Reason For Visit No Information Reason For Referral Reason For Referral No Information History Of Present Illness Encounter Date Complaint History Of Prese nt Illness No Information Functional Status Date Functional Assessmen t No Information Instructions Date Instruction Additional Infor mation No Information Assessments Type Assessment Date No Information Patient Care Teams Name Effective Dates (start - stop) Status Members No Information
--- OUTSIDE RECORDS SUMMARY | 2024-06-24 11:02 | XMS_ITS | Patient Health Summary ---
Author Organization [facility] Address [address] [place] [address] Care Team Providers Care Home School Teacher Name Role Phone Mariam Fierro MD Primary Care Provider U okailelena Note from [facility],non-owned Affiliates and Associated Physician Practices is amultiple site organization consisting of ambulatory clinics and hospital sitesin [place], [place], [place] and [place]. This disclosure is being madepursuant to the Care Everywhere program and may not contain all information available regarding this patient. Last updated 18.[facility] Allergies * Penicillins(Urticaria) Medications * Be aware that medications may not be up to date on this document. Alwaysverify current medications with the patient. * atorvastatin (LIPITOR) 40 MG tablet(Started 06/03/2015) Take 40 mg by mouth at bedtime * vitamin D, ergocalciferol, (DRISDOL) 34358 UNITS capsule(Started 04/27/2015) * estradiol (ESTRACE) 0.5 MG tablet(Started 06/03/2015) * estradiol (ESTRACE) 1 MG tablet(Started 05/22/2015) * hydrochlorothiazide (HYDRODIURIL) 25 MG tablet(Started 05/13/2015) Take 25 mg by mouth once daily Reasons: Edema * nortriptyline (PAMELOR) 25 MG capsule(Started 04/27/2015) Take 25 mg by mouth 3 times daily Reasons: Depression * omeprazole (PRILOSEC) 40 MG capsule(Started 03/20/2015) * Zxcniwi-Ffacholgv-Pyvxerv D (CALCIUM 1200+D3 PO) Take 1 Tab by mouth once daily * aspirin (ASPIRIN) 81 MG tablet Take 81 mg by mouth once daily * methocarbamol (ROBAXIN) 500 MG tablet(Started 08/06/2015) Take 1 Tab by mouth every 6 hours as needed for Muscle Spasms 1 refill left * diclofenac sodium EC (VOLTAREN) 75 MG tablet(Started 08/06/2015) Take 1 Tab by mouth 2 times daily 1 refill left * HYDROcodone-acetaminophen (NORCO) 5-325 MG tablet(Started 08/17/2015) Take 1 Tab by mouth every 4 hours as needed for Pain Active Problems Problem Noted Date Diagnosed Date [...] Mass Index 30.67 08/17/2015 9:56 AM CDT Procedures * XR LUMBAR SPINE 2 OR 3VW(Performed 03/02/2022) Performed for Disability examination * XR PELVIS W LEFT HIP 2VW(Performed 03/02/2022) Performed for Disability examination * CARDIAC RHYTHM STRIP ORDER(Performed 08/08/2015) * XR SPINE 1 VIEW(Performed 08/06/2015) Performed for Pain * DECOMPRESSION LUMBAR 1-2 LEVELS(Performed 08/06/2015) Performed for Disc degeneration, lumbar, Herniated nucleus pulposus, L4-5 * DISCECTOMY LUMBAR 1-2 LEVELS(Performed 08/06/2015) Performed for Disc degeneration, lumbar, Herniated nucleus pulposus, L4-5 * IMAGING/RADIOLOGY/XRAY RESULTS ORDER(Performed 10/11/2012) * IMAGING/RADIOLOGY/XRAY RESULTS ORDER(Performed 10/04/2012) Results * XR PELVIS W LEFT HIP 2VW [id number] (03/02/2022 1:25 PM PLUSH WEAVER) Anatomical Region Laterality Modality Pelvis Computed Radiogr aphy 03/02/2022 3:06 PM PLUSH WEAVER Impressions 03/02/2022 3:06 PM PLUSH WEAVER IMPRESSION: The ring of the pelvis is intact. The sacroiliac joints are unremarkable. The hips are anatomically aligned. Left hip arthroplasty without visible complication. There is no evidence of pelvic fracture. > Interpreting Provider: Dashawn Menon MD on 03/02/2022 3:06 PM Narrative 03/02/2022 3:06 PM PLUSH WEAVER PROCEDURE: XR PELVIS W LEFT HIP 2VW, DATE/TIME OF EXAM: 03/02/2022 1:25 PM, LOCATION [facility] INDICATION: Z02.71: Encounter for disability determination ADDITIONAL CLINICAL INFORMATION: Ordering Provider Reason For Exam: Technologist Note: Additional: COMPARISON: None. FINDINGS AND IMPRESSION: Procedure Note Dashawn Menon MD - 03/02/2022 PROCEDURE: XR PELVIS W LEFT HIP 2VW, DATE/TIME OF EXAM: 21:25 PM, LOCATION [facility] INDICATION: Z02.71: Encounter for disability determination ADDITIONAL CLINICAL INFORMATION: Ordering Provider Reason For Exam: Technologist Note: Additional: COMPARISON: None. FINDINGS AND IMPRESSION: IMPRESSION: The ring of the pelvis is intact. The sacroiliac joints are unremarkable. The hips are anatomically aligned. Left hip arthroplasty without visible complication. There is no evidence of pelvic fracture. > Interpreting Provider: Dashawn Menon MD on 03/02/2022 3:06 PM Efrain Baker MD DIAGNOSTIC IMAGING ORDERABLES * XR LUMBAR SPINE 2 OR 3 VW [id number] (03/02/2022 1:25 PM PLUSH WEAVER) Anatomical Region Laterality Modality Spine Computed Radiogr aphy 03/02/2022 3:06 PM PLUSH WEAVER Impressions 03/02/2022 3:07 PM PLUSH WEAVER IMPRESSION: As above > Interpreting Provider: Dashawn Menon MD on 03/02/2022 3:07 PM Narrative 03/02/2022 3:07 PM PLUSH WEAVER PROCEDURE: XR LUMBAR SPINE 2 OR 3VW, DATE/TIME OF EXAM: 03/02/2022 1:25 PM, LOCATION [facility] INDICATION: Z02.71: Encounter for disability determination ADDITIONAL CLINICAL INFORMATION: Ordering Provider Reason For Exam: Technologist Note: Additional: COMPARISON: None. FINDINGS AND IMPRESSION: FINDINGS: Lumbar spine demonstrate the alignment is anatomic. Disc spaces show mild degenerative disc disease at the upper lumbar levels with moderate degenerative disc disease L4-5 and severe degenerative disc disease L5-S1. Moderate facet arthrosis L5-S1 No compression fracture seen. No malalignment Sacroiliac joints unremarkable Facets align normally. There is no advanced arthrosis. Sacroiliac joints and sacral ala are normal as seen. Retroperitoneal soft tissues unremarkable. Procedure Note Dashawn Menon MD - 03/02/2022 PROCEDURE: XR LUMBAR SPINE 2 OR 3VW, DATE/TIME OF EXAM: 21:25 PM, LOCATION [facility] INDICATION: Z02.71: Encounter for disability determination ADDITIONAL CLINICAL INFORMATION: Ordering Provider Reason For Exam: Technologist Note: Additional: COMPARISON: None. FINDINGS AND IMPRESSION: FINDINGS: Lumbar spine demonstrate the alignment is anatomic. Disc spaces show mild degenerative disc disease at the upper lumbarlevels with moderate degenerative disc disease L4-5 and severe degenerativedisc disease L5-S1. Moderate facet arthrosis L5-S1 No compression fracture seen. No malalignment Sacroiliac joints unremarkable Facets align normally. There is no advanced arthrosis. Sacroiliac joints and sacral ala are normal as seen. Retroperitoneal soft tissues unremarkable. IMPRESSION: As above > Interpreting Provider: Dashawn Menon MD on 03/02/2022 3:07 PM Efrain Baker MD DIAGNOSTIC IMAGING ORDERABLES * CARDIAC RHYTHM STRIP ORDER (08/08/2015 2:14 AM CDT) Narrative 08/08/2015 2:14 AM CDT Ordered by an unspecified provider. Scanned Document CARDIAC SERVICES ORD ERABLES * XR SPINE 1 VIEW (08/06/2015 9:16 AM CDT) Anatomical Region Laterality Modality Spine Radiographic Shaista ging 08/06/2015 11:5 6 AM CDT Narrative 08/06/2015 11:56 AM CDT Spine single view Clinical: Localization level Findings: Single lateral view the lumbar spine demonstrates posterior localizer at the L4-5 levels. Alignment is normal. Procedure Note Adele Garcia MD - 08/06/2015 Spine single view Clinical: Localization level Findings: Single lateral view the lumbar spine demonstrates posterior localizer at the L4-5 levels. Alignment is normal. Ty Steiner MD DIAGNOSTIC IMAGING O RDERABLES * IMAGING/RADIOLOGY/XRAY RESULTS ORDER (10/11/2012) Only the most recent of2 resultswithin the time period is included. Anatomical Region Laterality Modality Other Mariam Fierro MD IMAGING Care Teams Home School Teacher Relationship Specialty Start Date End Date Mariam Fierro MD [address] [place] [address] PCP - General Family Medicine 06/17/15
--- OUTSIDE RECORDS SUMMARY | 2024-06-24 11:02 | XMS_ITS | Clinical Summary ---
Author Organization [facility] [employer] Address [address] [place] [address] Care Team Providers Care Life Cycle Assessment Analyst Name Role Phone Mariam Fierro MD Primary Care Provider U okailelena Source Comments [facility] [employer],non-owned Affiliates and Associated Physician Practices is amultiple site organization consisting of ambulatory clinics and hospital sitesin [place], [place], [place] and [place]. This disclosure is being madepursuant to the Care Everywhere program and may not contain all information available regarding this patient. Last updated 18.[facility] [employer] Allergies Active Allergy Reactions Criticality Noted Date Comments Penicillins Urticaria 06/22/2015 Medications * Be aware that medications may not be up to date on this document. Alwaysverify current medications with the patient. Medication Sig Dispensed Refills Start Date End Date Status atorvastatin (LIPITOR) 40 MG tablet Take 40 mg by mouth at bedtime 06/03/2015 Active vitamin D, ergocalciferol, (DRISDOL) 39521 UNITS capsule 04/27/2015 Active estradiol (ESTRACE) 0.5 MG tablet 06/03/2015 Active estradiol (ESTRACE) 1 MG tablet 05/22/2015 Active hydrochlorothiazide (HYDRODIURIL) 25 MG tabletIndications:Ed jovanny Take 25 mg by mouth once daily Reasons: Edema 05/13/2015 Active nortriptyline (PAMELOR) 25 MG capsuleIndications:D epression Take 25 mg by mouth 3 times daily Reasons: Depression 04/27/2015 Active omeprazole (PRILOSEC) 40 MG capsule 03/20/2015 Active Kkylwzs-Qcszkimlq-Xp tamin D (CALCIUM 1200+D3 PO) Take 1 [...] Mass Index 30.67 08/17/2015 9:56 AM CDT Plan of Treatment Health Maintenance Due Date Last Done Comments COLOGUARD (AGES 45-75) - COL ON CA SCREENING 1964 COLON MONITORING 1964 COLONOSCOPY - COLON CA SCREENING 1964 CT COLONOGRAPHY - COLON CA SCREENING 1964 Colorectal Cancer Screening 1964 FIT - COLON CA SCREENING 1964 FLEX SIG - COLON CA SCREENING 1964 MAMMOGRAM 1964 PAP SMEAR 1964 HIV SCREENING 07/20/1979 HEPATITIS C SCREENING 07/15/1982 DTAP/TDAP/TD VACCINES (1 - Tdap) 07/20/1983 HEPATITIS B VACCINE (1 of 3 - 19+ 3-dose series) 07/20/1983 PNEUMOCOCCAL VACCINE 50+ (1 of 2 - PCV) 07/20/1983 PNEUMOCOCCAL VACCINE (1 of 2 - PCV) 07/20/1983 ZOSTER VACCINE (1 of 2) 2014 COVID-19 VACCINE (1 - 2023-2 5 season) 2023 INFLUENZA VACCINE (#1) 2023 DEPRESSION SCREENING 04/17/2024 MEDICARE AWV CALENDAR YEAR 2024 HIB VACCINE Aged Out No longer eligi ble based on patient's age to complete this topic HPV VACCINE Aged Out No longer eligi ble based on patient's age to complete this topic MENINGOCOCCAL (Group B) VACCINE Aged Out No longer eligible based on patient's age to complete this topic MENINGOCOCCAL VACCINE Aged Out No mimi yariel eligible based on patient's age to complete this topic Advance Directives * Full Code (Latest Code Status on File) Date Activated Date Inactivated Comments 08/06/2015 11:57 AM 08/06/2015 8:42 PM Care Teams Life Cycle Assessment Analyst Relationship Specialty Start Date End Date Rostovtseva, Mariam Y, MD [address] [place] [address] PCP - General Family Medicine 06/17/15
--- OUTSIDE RECORDS SUMMARY | 2024-06-24 11:02 | XMS_ITS | Clinical Summary ---
Author Organization [facility] Address [facility] [place] [address] Care Team Providers Care Physiotherapy Assistant Name Role Phone Mariam Fierro MD Primary Care Provider +1- [phone] Active Problems Problem Noted Date Diagnosed Date Hypertension 05/20/2022 Encounters Date Type Department Care Team Description 06/13/2024 8:53 AM EXTRUDER OPERATOR MULTIPLE - 06/13/2024 11:59 PM EXTRUDER OPERATOR MULTIPLE Hospital Encounter [facility] [address] [place] [address] Cecilia Shearer PA Wiegmann, Lacey M, PT Discharge Disposition: Home or Self Care (Routine Discharge) 06/13/2024 Travel 06/11/2024 9:33 AM EXTRUDER OPERATOR MULTIPLE - 06/11/2024 11:59 PM EXTRUDER OPERATOR MULTIPLE Hospital Encounter [facility] [address] [place] [address] Cecilia Shearer PA Davidson, Brooke M, COTTON INSPECTOR Discharge Disposition: Home or Self Care (Routine Discharge) 06/11/2024 Travel 05/30/2024 8:52 AM EXTRUDER OPERATOR MULTIPLE - 05/30/2024 11:59 PM EXTRUDER OPERATOR MULTIPLE Hospital Encounter [facility] [address] [place] [address] Cecilia Shearer PA Hays, Michelle, COTTON INSPECTOR Discharge Disposition: Home or Self Care (Routine Discharge) 05/30/2024 Travel 05/27/2024 8:39 AM EXTRUDER OPERATOR MULTIPLE - 05/27/2024 11:59 PM EXTRUDER OPERATOR MULTIPLE Hospital Encounter [facility] [address] [place] [address] Cecilia Shearer PA Wiegmann, Lacey M, PT Shoulder Pain Discharge Disposition: Home or Self Care (Routine Discharge) 05/27/2024 Travel from Last 3 Months Social History Tobacco Use Types Packs/Day Years Used Date Smoking Tobacco: Never Assessed Comments Unknown Sex and Gender Information Value Date Recorded Sex Assigned at Female 05/21/2024 11:00 AM EXTRUDER OPERATOR MULTIPLE Legal Sex Female 3:40 PM EXTRUDER OPERATOR MULTIPLE Gender Identity Not on file Sexual Orientation Not on file Travel History Travel Start Travel End [place] 04/26/2024 05/27/2024 Plan of Treatment Upcoming Encounters Date Type Department Care Team (Late st Contact Info) Description 06/25/2024 9:00 AM CDT Appointment [facility] [address] [place] [address] Cecilia Shearer PA [address] [facility] [facility] [address] [place] [address] Stephanie Carver, COTTON INSPECTOR 06/27/2024 9:00 AM CDT Appointment [facility] [address] [place] [address] Cecilia Shearer PA [address] [facility] [facility] [address] [place] [address] Prachi Adkins, SHANTE 07/02/2024 9:00 AM CDT Appointment [facility] [address] [place] [address] Cecilia Shearer PA [address] [facility] [address] [place] [address] Samira Dotson, COTTON INSPECTOR 07/04/2024 9:00 AM CDT Appointment [facility] [address] [place] [address] Cecilia Shearer PA [address] [facility] [address] [place] [address] Craig Salazar, PT [address] [place] [address] 07/09/2024 9:00 AM CDT Appointment [address] [place] [address] Cecilia Shearer PA [address] [facility] [address] [place] [address] Samira Dotson, COTTON INSPECTOR 07/11/2024 9:00 AM CDT Appointment [address] [place] [address] Cecilia Shearer PA [address] [address] Kristen De Jesus, PT [address] [place] [address] 07/16/2024 9:00 AM CDT Appointment [address] [place] [address] Cecilia Shearer PA [address] [address] Samira Dotson, COTTON INSPECTOR 07/18/2024 9:00 AM CDT Appointment [address] [place] [address] Cecilia Shearer PA [address] [address] Kristen De Jesus, PT [address] [place] [address] Health Maintenance Due Date Last Done Comments Cervical Cancer Screening Pa p Smear (Age 30 to 64) Every 3 Years 1964 Colorectal Cancer Screening Colonoscopy (10 Years) 1964 Annual Physical 07/20/1967 Hepatitis C 1982 DTaP, Tdap and Td Vaccines ( 1 - Tdap) 07/20/1983 Cervical Cancer Screening Pa p with HPV Testing (Age 30 to 64) Every 5 Years 1994 Cervical Cancer Screening wi th HPV 1994 Mammogram Screening 2004 Zoster Vaccines (1 of 2) 2014 COVID-19 Vaccine (2023-2 5 season) 2023 12/31/2020, 11/30/2020 Influenza Adult (#1) 2024 01/03/2019 Meningococcal B Vaccine Aged Out No l onger eligible based on patient's age to complete this topic Meningococcal Vaccine Aged Out No mimi yariel eligible based on patient's age to complete this topic Pneumococcal Vaccine: Pediatrics (0 to 5 Years) and At-Risk Patients (6 to 64 Years) Aged Out No longer eligible b ased on patient's age to complete this topic RSV Immunizations Under 20 Months Aged Out No longer eligible b ased on patient's age to complete this topic Insurance AETNA Care Teams Physiotherapy Assistant Relationship Specialty Start Date End Date Mariam Fierro MD [address] [facility] [address] [place] [address] PCP - General FAMILY PRACTICE 05/12/22
== END 2024-06-24 09:44 | disposition home or self-care (01) ==
PROVIDERS: PCP Family Medicine; Visit Provider Plastic Surgery
DX: M18.11 Unilateral primary osteoarthritis of first carpometacarpal joint, right hand (principal)
CPT/HCPCS: 73130

== ENCOUNTER 2024-08-21 06:59 | Outpatient (CLI) | payer MEDICARE, SELFPAY ==
--- OUTSIDE RECORDS SUMMARY | 2024-08-21 07:02 | XMS_ITS | Continuity of Care Document ---
Author Organization [facility] Address [address] [place] [address] Phone Care Team Providers Care Artificial Leather Calender Operator Name Role Phone Jf Rosa MD Unavailable Unavailable Advance Directives Directive Yes / No Effective Date File Name No Information Encounters Encounter Description Practice Location Reason(s) For Visit Diagnoses Date Provider Providers Copied on Encounter [facility], [address], [place], [place], [id number], [place] tel:[phone] [address] [facility] No Information Jun- 5-200 5 Shelley Rhoades. [address] [facility] [address], [place], [place], [id number], [place]. tel:[phone] Family History Family Member Type Diagnosis Age [...]
--- OUTSIDE RECORDS SUMMARY | 2024-08-21 07:02 | XMS_ITS | Clinical Summary ---
Author Organization [facility] Address [facility] [place] [address] Care Team Providers Care Retail Key Holder Name Role Phone Mariam Fierro MD Primary Care Provider +1- [phone] Active Problems Problem Noted Date Diagnosed Date Hypertension 05/20/2022 Encounters Date Type Department Care Team Description 06/13/2024 8:53 AM PHOTOGRAPH EDITOR - 06/13/2024 11:59 PM PHOTOGRAPH EDITOR Hospital Encounter [facility] [address] [place] [address] Cecilia Shearer PA Wiegmann, Lacey M, PT Discharge Disposition: Home or Self Care (Routine Discharge) 06/13/2024 Travel 06/11/2024 9:33 AM PHOTOGRAPH EDITOR - 06/11/2024 11:59 PM PHOTOGRAPH EDITOR Hospital Encounter [facility] [address] [place] [address] Cecilia Shearer PA Davidson, Brooke M, STUD MASTER/MISTRESS Discharge Disposition: Home or Self Care (Routine Discharge) 06/11/2024 Travel 05/30/2024 8:52 AM PHOTOGRAPH EDITOR - 05/30/2024 11:59 PM PHOTOGRAPH EDITOR Hospital Encounter [facility] [address] [place] [address] Cecilia Shearer PA Hays, Michelle, STUD MASTER/MISTRESS Discharge Disposition: Home or Self Care (Routine Discharge) 05/30/2024 Travel 05/27/2024 8:39 AM PHOTOGRAPH EDITOR - 05/27/2024 11:59 PM PHOTOGRAPH EDITOR Hospital Encounter [facility] [address] [place] [address] Cecilia Shearer PA Wiegmann, Lacey M, PT Shoulder Pain Discharge Disposition: Home or Self Care (Routine Discharge) 05/27/2024 Travel from Last 3 Months Social History Tobacco Use Types Packs/Day Years Used Date Smoking Tobacco: Never Assessed Comments Unknown Sex and Gender Information Value Date Recorded Sex Assigned at Female 05/21/2024 11:00 AM PHOTOGRAPH EDITOR Legal Sex Female 3:40 PM PHOTOGRAPH EDITOR Gender Identity Not on file Sexual Orientation Not on file Plan of Treatment Health Maintenance Due Date [...] wi th HPV 1994 Mammogram Screening 2004 Pneumococcal Vaccine: 50+ Years (1 of 1 - PCV) 2014 Zoster Vaccines (1 of 2) 2014 COVID-19 Vaccine (3 - 2023-2 5 season) 2023 12/31/2020, 11/30/2020 RSV Immunization or 60+ Years (1 - 1-dose 75+ series) 07/20/2039 Meningococcal B Vaccine Aged Out No l onger eligible based on patient's age to complete this topic Meningococcal Vaccine Aged Out No mimi yariel eligible based on patient's age to complete this topic RSV Immunizations Under 20 Months Aged Out No longer eligible b ased on patient's age to complete this topic Insurance AETNA Care Teams Retail Key Holder Relationship Specialty Start Date End Date Mariam Fierro MD [address] [facility] [address] [place], [place] [id number] PCP - General FAMILY PRACTICE 05/12/22
--- OUTSIDE RECORDS SUMMARY | 2024-08-21 07:02 | XMS_ITS | Clinical Summary ---
Author Organization [facility] Address [address] [place] [address] Care Team Providers Care School Examiner Name Role Phone Mariam Fierro MD Primary Care Provider U okailelena Source Comments [facility],non-owned Affiliates and Associated Physician Practices is amultiple site organization consisting of ambulatory clinics and hospital sitesin [place], [place], [place] and [place]. This disclosure is being madepursuant to the Care Everywhere program and may not contain all information available regarding this patient. Last updated 18.[facility] Allergies Active Allergy Reactions Criticality Noted Date Comments Penicillins Urticaria 06/22/2015 Medications * Be aware that medications may not be up to date on this document. Alwaysverify current medications with the patient. atorvastatin (LIPITOR) 40 MG tablet Take 40 mg by mouth at bedtime 6 Active vitamin D, ergocalciferol, (DRISDOL) 00358 UNITS capsule 6 Active estradiol (ESTRACE) 0.5 MG tablet 6 Active estradiol (ESTRACE) 1 MG tablet 6 Active hydrochlorothia zide (HYDRODIURIL) 25 MG tabletIndicatio ns:Edema Take 25 mg by mouth once daily Reasons: Edema 6 Active nortriptyline (PAMELOR) 25 MG capsuleIndicati ons:Depression Take 25 mg by mouth 3 times daily Reasons: Depression 6 Active omeprazole (PRILOSEC) 40 MG capsule 5 Active Calcium-Magnesi um-Vitamin D (CALCIUM 1200+D3 PO) Take 1 Tab by mouth once daily Active aspirin (ASPIRIN) 81 MG tablet Take 81 mg by mouth once daily Active methocarbamol (ROBAXIN) 500 MG tablet Take 1 Tab by mouth every 6 hours as needed for Muscle Spasms 40 Tab 1 6 Active diclofenac sodium EC (VOLTAREN) 75 MG tablet Take 1 Tab by mouth 2 times daily 60 Tab 1 6 Active HYDROcodone-juan francisco taminophen (NORCO) 5-325 MG tablet Take 1 Tab by mouth every 4 hours as needed for Pain 50 Tab 0 6 Active Active Problems Problem Noted Date Diagnosed Date Smoking Overview (07/17/2024): IMO 07/17/2024 Social History Tobacco Use Types Packs/Day Years Used Date Smoking Tobacco: Every Day Cigarettes 0.5 34.3 Started: 04/17/1990 Smokeless Tobacco: Never Tobacco Cessation:Ready to Q uit: No; Counseling Given: Yes Alcohol Use Standard Drinks/Week Comments No 0 (1 standard drink = 0.6 oz pur e alcohol) Comments No Sex and Gender Information Value Date Recorded Sex Assigned at Not on file Legal Sex Female 9:09 AM SUPERVISOR METAL FURNITURE ASSEMBLY Gender Identity Not on file Sexual Orientation [...] 07/15/1982 DTAP/TDAP/TD VACCINES (1 - Tdap) 07/20/1983 PNEUMOCOCCAL VACCINE 50+ (1 of 2 - PCV) 07/20/1983 ZOSTER VACCINE (1 of 2) 2014 COVID-19 VACCINE (1 - 2023-2 5 season) 2023 DEPRESSION SCREENING 04/17/2024 MEDICARE AWV CALENDAR YEAR 2024 INFLUENZA VACCINE (Season Ended) 2024 Respiratory Syncytial Virus (RSV) Vaccine Pt: or over 60 yrs (1 - 1-dose 75+ series) 07/20/2039 HEPATITIS B VACCINE Aged Out No longe r eligible based on patient's age to complete this topic HIB VACCINE Aged Out No longer eligi ble based on patient's age to complete this topic HPV VACCINE Aged Out No longer eligi ble based on patient's age to complete this topic MENINGOCOCCAL (Group B) VACC INE SHARED DECISION-MAKING Aged Out No longer eligibl e based on patient's age to complete this topic MENINGOCOCCAL GROUPS A/C/Y/W VACCINE Aged Out No longer eligible b ased on patient's age to complete this topic Insurance AETNA MEDICARE [facility] Advance Directives * Full Code (Latest Code Status on File) Date Activated Date Inactivated Comments 08/06/2015 11:57 AM 08/06/2015 8:42 PM Care Teams School Examiner Relationship Specialty Start Date End Date Mariam Fierro MD [address] [place] [address] PCP - General Family Medicine 06/17/15
[2024-08-21 08:08] LABS: Anion Gap 4 mmol/L (4-12); Blood Urea Nitrogen 16 mg/dL (7-17); Calcium 8.7 mg/dL (8.4-10.2); Carbon Dioxide 31 mmol/L (22-30); Chloride 106 mmol/L (98-107); Estimated Glomerular Filt Rate > 60; Glucose 97 mg/dL (65-110); Potassium 3.3 mmol/L (3.4-5.0); Sodium 141 mmol/L (137-145)
--- NOTE | 2024-08-21 08:27 | ECG_ITS ---
Test Date: 2024-08-21 08:35:56 Measurements Intervals [place] Rate: 68 P: 4 [place]: 159 QRS: 5 QRSD: 92 T: 3 QT: 393 QTc: 418 Interpretive Statements SINUS RHYTHM ANTERIOR MYOCARDIAL INFARCTION , PROBABLY OLD [40+ ms Q WAVE AND/OR ST/T ABNORMALITY IN V3/V4] POSSIBLE INFERIOR MYOCARDIAL INFARCTION , PROBABLY OLD [30 ms Q WAVE IN II/aVF] No previous ECG available for comparison Electronically Signed On 08-21-2024 14:03:16 CDT by Marino Chiu M.D.
== END 2024-08-21 07:00 | disposition home or self-care (01) ==
PROVIDERS: PCP Family Medicine; Visit Provider Anesthesiology
DX: Z01.812 Encounter for preprocedural laboratory examination (principal); R94.31 Abnormal electrocardiogram [ECG] [EKG]
CPT/HCPCS: 36415; 80048; 93005

== ENCOUNTER 2024-08-21 09:07 | Outpatient (CLI) | payer MEDICARE, SELFPAY ==
--- NOTE | ~2024-08-21 | DEXA_ITS ---
Bone Density Report Name: REJI MAK Age: 59 Sex: Female Ethnicity: White Date of : 1965 Indication: postmenopausal; screening for osteoporosis; height loss; hysterectomy; Referring Provider: PEPE, JORDAN Study: Bone densitometry was performed. Exam Date: August 21, 2024 Accession number: [id number] Bone Density: Region BMD T-score Z-score Classification AP Spine(L1-L4) 0.978 -0.6 0.8 Normal Femoral Neck (Right) 0.867 0.2 1.4 Normal Total Hip (Right) 1.004 0.5 1.5 Normal World Health Organization criteria for BMD impression classify patients as: Normal (T-score at or above -1.0), Osteopenia (T-score between -1.0 and -2.5), or Osteoporosis (T-score at or below -2.5). 10-year Fracture Risk: FRAX not reported because: All T-scores for Spine Total, Hip Total, Femoral Neck at or above -1.0 Clinical Information Provided by Patient: Has used the following medications: HRT (i.e. estrogen/hormone therapy), Vitamin D, Calcium Has the following medical conditions: Hysterectomy Patient maximum height was 66 Menopause Age: 41 No regular weight bearing exercise Does not regularly consume dairy products Drinks caffeinated beverages Onset of menses at age 12 Number of children 1 Impression: The patient has normal bone mass. Discussion: BONE DENSITY IS ABOVE THE MINIMUM DESIRABLE LEVEL AT ALL SKELETAL SITES TESTED. This patient?s bone mineral density is above the minimum desirable level (T-score -1.0 or better) at all sites measured. The patient should follow a healthful lifestyle (good nutrition with adequate calcium and vitamin D, and appropriate weight-bearing exercise). Follow-Up: Consider repeating this study in 5 years or sooner if there is some new clinical indication. Reported by: MARY on 08/21/2024 9:58:00 AM. Reviewed, dictated and finalized at location A. [facility]
--- OUTSIDE RECORDS SUMMARY | 2024-08-21 09:31 | XMS_ITS | Clinical Summary ---
Author Organization [facility] [employer] Address [address] [place] [address] Care Team Providers Care Latin Dancer Name Role Phone Mariam Fierro MD Primary Care Provider U okailelena Source Comments [facility] [employer],non-owned Affiliates and Associated Physician Practices is amultiple site organization consisting of ambulatory clinics and hospital sitesin [place], [place], [place]. This disclosure is being madepursuant to the Care Everywhere program and may not contain all information available regarding this patient. Last updated 18.[facility] [employer] Allergies Active Allergy Reactions Criticality Noted Date Comments Penicillins Urticaria 06/22/2015 Medications * Be aware that medications may not be up to date on this document. Alwaysverify current medications with the patient. atorvastatin (LIPITOR) 40 MG tablet Take 40 mg by mouth at bedtime 6 Active vitamin D, ergocalciferol, (DRISDOL) 85237 UNITS capsule 6 Active estradiol (ESTRACE) 0.5 [...] on file Legal Sex Female 9:09 AM FACILITIES ENGINEERING MANAGER Gender Identity Not on file Sexual Orientation [...] complete this topic Insurance AETNA [facility]IC[facility] Advance Directives * Full Code (Latest Code Status on File) Date Activated Date Inactivated Comments 08/06/2015 11:57 AM 08/06/2015 8:42 PM Care Teams Latin Dancer Relationship Specialty Start Date End Date Mariam Fierro MD [address] [place] [address] PCP - General Family Medicine 06/17/15
--- OUTSIDE RECORDS SUMMARY | 2024-08-21 09:31 | XMS_ITS | Continuity of Care Document ---
Author Organization [facility] Address [address] [place] [address] Phone Care Team Providers Care Decal Applier Name Role Phone Jf Rosa MD Unavailable Unavailable Advance Directives Directive Yes / No Effective Date File Name No Information Encounters Encounter Description Practice Location Reason(s) For Visit Diagnoses Date Provider Providers Copied on Encounter [facility], [address], [place], [place], [id number], [place] tel:[phone] [facility][note 3] No Information Jun- 5-200 5 Shelley Rhoades. [address] [facility] [address], [place], [place], [address], [place]. tel:[phone] Family History Family Member Type Diagnosis Age At Onset No Information Payers Payer name Insurance type Covered constitution party ID Authoriza tion(s) No Information Social History [...]
--- OUTSIDE RECORDS SUMMARY | 2024-08-21 09:31 | XMS_ITS | Clinical Summary ---
Author Organization [facility] Address [facility] [place] [address] Care Team Providers Care Animal Husbandry Teacher Name Role Phone Mariam Fierro MD Primary Care Provider +1- [phone] Active Problems Problem Noted Date Diagnosed Date Hypertension 05/20/2022 Encounters Date Type Department Care Team Description 06/13/2024 8:53 AM SET UP MECHANIC HEADING MACHINES - 06/13/2024 11:59 PM SET UP MECHANIC HEADING MACHINES Hospital Encounter [facility] [address] [address] Cecilia Shearer PA Wiegmann, Lacey M, PT Discharge Disposition: Home or Self Care (Routine Discharge) 06/13/2024 Travel 06/11/2024 9:33 AM SET UP MECHANIC HEADING MACHINES - 06/11/2024 11:59 PM SET UP MECHANIC HEADING MACHINES Hospital Encounter [facility] [address] [address] Cecilia Shearer PA Davidson, Brooke M, AGRICULTURAL RESEARCH TECHNOLOGIST Discharge Disposition: Home or Self Care (Routine Discharge) 06/11/2024 Travel 05/30/2024 8:52 AM SET UP MECHANIC HEADING MACHINES - 05/30/2024 11:59 PM SET UP MECHANIC HEADING MACHINES Hospital Encounter [facility] [address] [place] [address] Cecilia Shearer PA Hays, Michelle, AGRICULTURAL RESEARCH TECHNOLOGIST Discharge Disposition: Home or Self Care (Routine Discharge) 05/30/2024 Travel 05/27/2024 8:39 AM SET UP MECHANIC HEADING MACHINES - 05/27/2024 11:59 PM SET UP MECHANIC HEADING MACHINES Hospital Encounter [facility] [address] [place] [address] Cecilia Shearer PA Wiegmann, Lacey M, PT Shoulder Pain Discharge Disposition: Home or Self Care (Routine Discharge) 05/27/2024 Travel from Last 3 Months Social History Tobacco Use Types Packs/Day Years Used Date Smoking Tobacco: Never Assessed Comments Unknown Sex and Gender Information Value Date Recorded Sex Assigned at Female 05/21/2024 11:00 AM SET UP MECHANIC HEADING MACHINES Legal Sex Female 3:40 PM SET UP MECHANIC HEADING MACHINES Gender Identity Not on file Sexual Orientation [...] complete this topic Insurance AETNA Care Teams Animal Husbandry Teacher Relationship Specialty Start Date End Date Mariam Fierro MD [address] [facility] [address] [place], [place] [id number] PCP - General FAMILY PRACTICE 05/12/22
== END 2024-08-21 09:08 | disposition home or self-care (01) ==
LOC: ANHIMG 09:09
PROVIDERS: PCP Family Medicine; Visit Provider Nurse Practitioner
DX: Z78.0 Asymptomatic menopausal state (principal)
CPT/HCPCS: 77080

== ENCOUNTER 2024-08-21 10:04 | Outpatient (CLI) | payer MEDICARE, SELFPAY ==
--- NOTE | ~2024-08-21 | MM_ITS ---
EXAMINATION: MM screening [facility] BI w bishop HISTORY: Screening TECHNIQUE: Craniocaudal and mediolateral oblique 3-D tomosynthesis images were obtained and synthetic 2-D images were generated. CAD analysis was submitted and interpreted. COMPARISON: Comparison to multiple prior studies sequentially, with oldest reviewed study dated 07/06. BREAST PARENCHYMAL COMPOSITION: Not dense: There are scattered areas of fibroglandular density. FINDINGS: There is no evidence of suspicious mass, calcification, or architectural distortion to sugg est malignancy in either breast. There has been no suspicious interval change. IMPRESSION: 1. No mammographic evidence of malignancy. 2. Recommend routine screening mammography in one year. BI-RADS Category 1: Negative Reviewed, dictated and finalized at location A.
== END 2024-08-21 10:05 | disposition home or self-care (01) ==
PROVIDERS: PCP Physician Assistant; Visit Provider Nurse Practitioner
DX: Z12.31 Encounter for screening mammogram for malignant neoplasm of breast (principal)
CPT/HCPCS: 77063; 77067

== ENCOUNTER 2024-09-05 05:52 | Day surgery (SDC) | payer MEDICARE, SELFPAY ==
[2024-08-19 09:30] VITALS: BMI 28.8
--- NOTE | 2024-08-27 07:06 | PC.NURSE ---
EKG completed 08/21/24. Result reviewed by Dr Maddox on 08/27/24. OK to proceed with procedure here at [facility] per Dr Maddox.
[2024-09-05] VITALS (8 sets, daily range): BP systolic 111–138; BP diastolic 74–88; PULSE 76–88; RESP 11–18; TEMP 36.6; O2SAT 91–100
--- NOTE | ~2024-09-05 | XR_ITS ---
EXAMINATION: XR surgery orthopedic DATE: 09/05/2024 08:22 INDICATION: Right basal joint arthroplasty TECHNIQUE: 5 fluoroscopic images of the right hand were obtained during procedure performed by Dr. Ab wolfe. Radiologist was not present for the imaging or procedure. The amount of fluoroscopy time us ed during this procedure was 0.1 minutes. Total DAP was 0.425 cGycm^2. COMPARISON: None. FINDINGS: Images demonstrate a first carpal metacarpal suspension arthroplasty with resection of the trapezium and placement of a tightrope type fixation with metallic buttons at either side of a tunnel spanning the bases of the first and second metacarpals. No fractures identified. Mild osteoarthritis at the fi rst metacarpophalangeal joint. IMPRESSION: 1. Expected appearance post trapezium resection and first carpal metacarpal suspension arthroplasty. See procedure note for further detail. Reviewed, dictated and finalized at location A. IMPRESSION: 1. Expected appearance post trapezium resection and first carpal metacarpal denita pension arthroplasty. See procedure note for further detail.
--- OUTSIDE RECORDS SUMMARY | 2024-09-05 06:03 | XMS_ITS | Clinical Summary ---
Author Organization [facility] Address [address] [place] [address] Care Team Providers Care Order Builder Name Role Phone Mariam Fierro MD Primary Care Provider U okailelena Source Comments [facility],non-owned Affiliates and Associated Physician Practices is amultiple site organization consisting of ambulatory clinics and hospital sitesin [place], [place], [place] and [place]. This disclosure is being madepursuant to the Care Everywhere program and may not contain all information available regarding this patient. Last updated 18.[facility] Allergies Active Allergy Reactions Criticality Noted Date Comments Penicillins Urticaria 06/22/2015 Medications * Be aware that medications may not be up to date on this document. Alwaysverify current medications with the patient. 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
--- OUTSIDE RECORDS SUMMARY | 2024-09-05 06:03 | XMS_ITS | Continuity of Care Document ---
Author Organization [facility] Address [address] [place] [address] Phone Care Team Providers Care Tool Honing Machine Set Up Operator Name Role Phone Jf Rosa MD Unavailable Unavailable Advance Directives Directive Yes / No Effective Date File Name No Information Encounters Encounter Description Practice Location Reason(s) For Visit Diagnoses Date Provider Providers Copied on Encounter [facility], [address] [place], [place], [id number], [place] tel:[phone] SEC [facility] No Information Jun- 5-200 5 Shelley Rhoades. [address], [place], [place], [id number], [place]. tel:[phone] Family History Family Member Type Diagnosis Age At Onset No Information Payers Payer name Insurance type Covered democrat ID Authoriza tion(s) No Information Social History [...]
--- NOTE | 2024-09-05 06:48 | PM.HPGS ---
History of Present Illness History of Present Illness Chief complaint: Osteoarthritis First Carpometacarpal Joint RT Hand Narrative: Patient seen and examined in pre-operative holding area. No interval change in medical history or symptoms. Patient recalls previous discussion of benefits and alternatives to procedure. Continues to desire to proceed with right basal joint arthroplasty with mini-tightrope. Reviewed procedure, post-op expectations and risks including but not limited to bleeding, infection, injury to tendon/nerve/vessel, decreased hand function, stiffness, RSD, no change or worsening of symptoms, device failure. I discussed the possible use of assistants and their participation in the case. Patient stated understanding and signed the consent form wishing to proceed. Review of Systems Review of Systems: All systems reviewed & are unremarkable except as noted in HPI and below PMFSH Past Medical History Medical History CMC arthritis, thumb, degenerative s/p arthroplasty R side. GERD (gastroesophageal reflux disease) Benign essential HTN BMI 36.0-36.9,adult Fluid retention in legs Urinary tract infection, site not specified Arthritis, hip Chronic bilateral low back pain with left-sided sciatica Essential (primary) hypertension Major depressive disorder, recurrent, moderate Menopausal and female climacteric states Mixed hyperlipidemia Obesity, unspecified Surgical History Surgical History History of total left hip arthroplasty (~2019) History of lumbar discectomy History of carpal tunnel release History of hysterectomy Family History Family History Father Family history of elevated blood lipids Other Family history of cardiovascular disease Hypertension Malignant neoplasm of prostate Social History Social History Social History: Smoking packs per day: 1 Smoking cigarettes per day: 20.0 Years smoked: 20 Smoking pack-years: 20.00 Smoking status: Former smoker Tobacco type: cigarettes Second hand tobacco smoke exposure: No Smoking end date: 04/17/13 Alcohol intake: current Alcohol use details: rarely Substance use: never Substance use type: does not use Do You Feel Safe in your Home?: Yes Lack of Transportation: No Lack of Food: Never True Current Housing: I Have Housing Concerned About Future Housing: No Difficulty Paying Gas/Electric Bills: No Difficulty Paying for Meds: No Currently Unemployed: No Education: High School Diploma/GED Difficulty w/ Childcare or Family Care: No Living arrangements: with family Additional living arrangements comments: pt lives with Occupation/Education: retired Gender identity (if verbalized by the patient): Female Sexual Orientation (if Verbalized by the Patient): Straight or Heterosexual Spiritual care concerns: No Meds Home Medications and Allergies Home Medications Medication Instructions Recorded Confirmed Type aspirin 81 mg tablet,delayed 81 mg PO DAILY 03/05/19 09/05/24 History release (Aspir-Low) estradiol 0.5 mg tablet (Estrace) 0.5 mg PO DAILY 11/02/21 09/05/24 History omega-3 fatty acids 1,000 mg 1,000 mg PO DAILY 01/06/23 09/05/24 History capsule Bacillus coagulans 10 billion cell 1 cell PO DAILY 02/20/24 09/05/24 History capsule,delayed release (Probiotic (B. coagulans)) minoxidil 2.5 mg tablet 1.25 mg PO DAILY 03/11/24 09/05/24 History triamcinolone acetonide 0.1 % See Rx Instructions .Route 03/11/24 09/05/24 History topical cream .COMPLEX PRN Rash omeprazole 40 mg capsule,delayed See Rx Instructions .Route 03/27/24 09/05/24 Rx release .COMPLEX #90 caps pramipexole 0.25 mg tablet 0.25 mg PO BID #180 tabs 04/01/24 09/05/24 Rx triamterene 37.5 See Rx Instructions .Route 04/05/24 09/05/24 Rx mg-hydrochlorothiazide 25 mg .COMPLEX #90 caps capsule losartan 50 mg tablet 25 mg (1/2 x 50 mg) PO DAILY #90 07/15/24 09/05/24 Rx tabs fluoxetine 40 mg capsule See Rx Instructions .Route 07/25/24 09/05/24 Rx .COMPLEX #90 caps rosuvastatin 40 mg tablet See Rx Instructions .Route 09/02/24 09/05/24 Rx .COMPLEX #90 tabs Allergies Allergy/AdvReac Type Severity Reaction Status Date / Time Penicillins Allergy Intermediate hives Verified 09/05/24 06:14 Vital Signs Vital Signs - 24 hr 09/05/24 06:16 Temperature 36.6 C Pulse Rate 79 Respiratory Rate 16 Blood Pressure 127/84 Pulse Oximetry 100 Oxygen Delivery Room Air Exam Narrative: unchanged Assessment and Plan Assessment and plan (1) Osteoarthritis of first carpometacarpal joint of right hand: Qualifiers: Osteoarthritis type: primary Qualified Code(s): M18.11 - Unilateral primary osteoarthritis of first carpometacarpal joint, right hand Code(s): M18.11 - Unilateral primary osteoarthritis of first carpometacarpal joint, right hand Status: Acute Assessment and Plan: cont as above
--- NOTE | 2024-09-05 06:48 | W.PM.PROC2 ---
Procedure Note - Detailed Date of Procedure 09/05/24 Pre-op Diagnosis Osteoarthritis First Carpometacarpal Joint RT Hand Post-op Diagnosis Same Procedure Performed right basal joint artroplasty Surgeon Tim Zamarripa MD Assembler Surgical Garment kristyn rooney pa-c Anesthesia General Description of Procedure INFORMED CONSENT: The patient was seen and examined and marked in the pre-op area. The patient signed the consent form. PROCEDURE IN DETAIL:The patient taken back to OR on the stretcher in supine position. Time out performed with anesthesia, surgeon and staff agreeing on patient's name site and surgery to be performed SCDs were placed on the lower extremities and inflated. A tourniquet was placed on {right} upper extremity and antibiotics given IV After anesthesia administered sedation I injected {8}cc 1%lido with epi and 0.5% marcaine plain at the operative site The {right upper extremity} was prepped and draped in sterile fashion the {right upper extremity} was exsanguinated with Esmarch bandage and tourniquet inflated to 250mmHg I proceeded with making a longitudinal incision over the right thumb CMC joint through skin and dermis with a 15 blade scalpel. Littler scissors were used to spread through subcutaneous tissue down to the joint capsule. The branch of the dorsal radial sensory nerve was identified and protected throughout the procedure. The dorsal radial artery was also identified and protected throughout the procedure. Using a 15 blade scalpel I made a capsular incision reflected capsular flaps. [place] elevator was inserted into the joint and mini C-arm was draped and brought into the field verifying trapezium placement. I proceeded with using a combination of 15 blade and rongeur to resect the trapezium. Resection was verified on multiple views of fluoroscopy. Next I proceeded with making a longitudinal incision over the base of the 2nd metacarpal through skin and dermis with a 15 blade scalpel. Littler scissors were used to spread down to the 2nd metacarpal periosteum. I incised the periosteum and reflected it on its ulnar aspect with [place] Tim[place] elevator. Next I used the Arthrex mini C ring guide to place the variable gauge K-wire in a radial to ulnar direction from the base of the 1st metacarpal coming out of the base of the 2nd metacarpal. Wire placement was verified on multiple views of fluoroscopy. I made an incision with 15 blade around the wire of the thumb and used Littler scissors to spread down to periosteum. The mini tight rope was then placed in standard fashion. After placement of the 2nd metacarpal button the wire and tight rope was initially tightened and then verified on fluoroscopy noting no subsidence on axial load and no impingement on range of motion. The button was secured. I irrigated with normal saline. 3-0 Vicryl was used to cover the 2nd metacarpal button with periosteum. 3-0 Vicryl was used for capsule repair and dermal closure. 4-0 Monocryl was used for subcuticular closure. A dressing of Dermabond, 4x4, abbi, and a thumb spica splint was applied for patient safety, security, and comfort and secured with an juan francisco bandage after the tourniquet was let down noting the hand was warm and well perfused. The patient was then awaken from anesthesia and transferred to the recovery room in stable condition. Complications - none EBL- 0cc Disposition - home in stable conditions Kristyn Rooney PA-C was essential for positioining, retraction, fluoroscopy, closure and dressing placement [facility] Billing Surgery - Charge Forward: Surgery Billing ([id number] same for kristyn adding )
--- NOTE | 2024-09-05 07:07 | P.PNAN_ITS ---
Anes - Initial Pre Proc Eval Procedure: Operation Date: 09/05/24 07:30 Proposed Procedures p Right Basal Joint Arthroplasty with Mini Tightrope - Tim Zamarripa MD Date/Time: 09/05/24 07:07 Surgeon: Tim Zamarripa MD Pre Op Diagnosis: Osteoarthritis First Carpometacarpal Joint RT Hand Patient Data Age: 59 Gender: F Height: 1.65 m Weight: 81.4 kg Last Vital Signs Temp 36.6 C 09/05/24 06:16 Pulse 79 09/05/24 06:16 Resp 16 09/05/24 06:16 BP 127/84 09/05/24 06:16 Pulse Ox 100 09/05/24 06:16 O2 Del Method Room Air 09/05/24 06:16 Allergies Allergy/AdvReac Type Severity Reaction Status Date / Time Penicillins Allergy Intermediate hives Verified 09/05/24 06:14 Home Medications Medication Instructions Recorded Confirmed Type aspirin 81 mg tablet,delayed 81 mg PO DAILY 03/05/19 09/05/24 History release (Aspir-Low) estradiol 0.5 mg tablet (Estrace) 0.5 mg PO DAILY 11/02/21 09/05/24 History omega-3 fatty acids 1,000 mg 1,000 mg PO DAILY 01/06/23 09/05/24 History capsule Bacillus coagulans 10 billion cell 1 cell PO DAILY 02/20/24 09/05/24 History capsule,delayed release (Probiotic (B. coagulans)) minoxidil 2.5 mg tablet 1.25 mg PO DAILY 03/11/24 09/05/24 History triamcinolone acetonide 0.1 % See Rx Instructions .Route 03/11/24 09/05/24 History topical cream .COMPLEX PRN Rash omeprazole 40 mg capsule,delayed See Rx Instructions .Route 03/27/24 09/05/24 Rx release .COMPLEX #90 caps pramipexole 0.25 mg tablet 0.25 mg PO BID #180 tabs 04/01/24 09/05/24 Rx triamterene 37.5 See Rx Instructions .Route 04/05/24 09/05/24 Rx mg-hydrochlorothiazide 25 mg .COMPLEX #90 caps capsule losartan 50 mg tablet 25 mg (1/2 x 50 mg) PO DAILY #90 07/15/24 09/05/24 Rx tabs fluoxetine 40 mg capsule See Rx Instructions .Route 07/25/24 09/05/24 Rx .COMPLEX #90 caps rosuvastatin 40 mg tablet See Rx Instructions .Route 09/02/24 09/05/24 Rx .COMPLEX #90 tabs Patient hx anesthesia problems: none Family hx anesthesia problems: none Results Review: All pre-operative results and documents have been reviewed as part of the pre-operative evaluation. [facility] Past Medical History Medical History CMC arthritis, thumb, degenerative s/p arthroplasty R side. GERD (gastroesophageal reflux disease) Benign essential HTN BMI 36.0-36.9,adult Fluid retention in legs Urinary tract infection, site not specified Arthritis, hip Chronic bilateral low back pain with left-sided sciatica Essential (primary) hypertension Major depressive disorder, recurrent, moderate Menopausal and female climacteric states Mixed hyperlipidemia Obesity, unspecified Surgical History Surgical History History of total left hip arthroplasty (~2019) History of lumbar discectomy History of carpal tunnel release History of hysterectomy Family History Family History Father Family history of elevated blood lipids Other Family history of cardiovascular disease Hypertension Malignant neoplasm of prostate Social History Social History Social History: Smoking packs per day: 1 Smoking cigarettes per day: 20.0 Years smoked: 20 Smoking pack-years: 20.00 Smoking status: Former smoker Tobacco type: cigarettes Second hand tobacco smoke exposure: No Smoking end date: 04/17/13 Alcohol intake: current Alcohol use details: rarely Substance use: never Substance use type: does not use Do You Feel Safe in your Home?: Yes Lack of Transportation: No Lack of Food: Never True Current Housing: I Have Housing Concerned About Future Housing: No Difficulty Paying Gas/Electric Bills: No Difficulty Paying for Meds: No Currently Unemployed: No Education: High School Diploma/GED Difficulty w/ Childcare or Family Care: No Living arrangements: with family Additional living arrangements comments: pt lives with Occupation/Education: retired Gender identity (if verbalized by the patient): Female Sexual Orientation (if Verbalized by the Patient): Straight or Heterosexual Spiritual care concerns: No Anes - Eval Final PreProcedure Day of Procedure 09/05/24 07:07 Patient weight: obese Heart: regular rate and rhythm Lungs: clear to auscultation Airway: Mallampati scale class II Neurological: alert and oriented Last oral intake: >/= 8 hours ASA classification: III Emergent: no Anesthetic plan: proceed Anesthesia type and monitoring: general LMA and standard monitoring Results Review: All pre-operative results and documents have been reviewed as part of the pre- operative evaluation. Informed Consent: The patient's anesthetic plan and its attendant risks and benefits were discussed with the patient/family/POA. Questions were solicited and answers provided to the satisfaction of the patient/family/POA.
[2024-09-05] MEDS: LACTATED RINGERS 1,000 ML 30 ML IV CONT ×2 (07:22→08:44)
[2024-09-05] MEDS: ceFAZolin SODIUM 2 GM/20 ML SW SYRINGE IV PUSH (07:23)
[2024-09-05] MEDS: LIDOCAINE 1% LOCAL INJ 20 ML VIAL 8 ML INFILTRATE (07:47)
[2024-09-05] MEDS: fentaNYL CITRATE INJ (*CRX) 100 MCG/2 ML VIAL 25 MCG IV PUSH ×7 (08:43→09:50)
--- NOTE | 2024-09-05 09:35 | SUR.OPER ---
pt resting comfortable on stretcher- arm elevated on pillow -ice pack refused by patient- 150 mcg of fentanyl given in 25mcg doses- patient states she has a high tolerance to meds and is still feeling a pain level of 7 0935- dr julien aware of pt situation and tylenol 1000mg ordered
[2024-09-05] MEDS: ACETAMINOPHEN 500 MG TABLET 1000 MG PO (09:43)
--- NOTE | 2024-09-05 09:44 | WPDANESPN ---
Anes - Prog Note Post-Op Date/Time: 09/05/24 09:44 Cardiovascular status: normal Respiratory status: normal Airway patency: baseline Mental status: baseline Post-Op hydration status: normal Vital Signs: Last Vital Signs Temp 36.6 C 09/05/24 08:30 Pulse 79 09/05/24 09:28 Resp 17 09/05/24 09:28 BP 111/74 09/05/24 09:28 Pulse Ox 100 09/05/24 09:28 O2 Del Method Room Air 09/05/24 09:28 O2 Flow Rate 8 09/05/24 08:45 Pain Score (VAS): 0/10 Patient Feedback: Patient satisfied with anesthetic care.
[2024-09-05] MEDS: oxyCODONE HCL (*CRX) 5 MG TAB IR PO (10:12)
== END 2024-09-05 10:42 | disposition home or self-care (01) ==
PROVIDERS: PCP Family Medicine; Visit Provider Plastic Surgery
PROC: (CPT 25447; principal; 2024-09-05 07:30)
DX: M18.11 Unilateral primary osteoarthritis of first carpometacarpal joint, right hand (principal)
CPT/HCPCS: 25447; 99199

== ENCOUNTER 2024-09-05 07:25 | Outpatient (NON) | payer MEDICARE, SELFPAY ==
--- OUTSIDE RECORDS SUMMARY | 2024-09-06 07:28 | XMS_ITS | Continuity of Care Document ---
Author Organization [facility] Address [address] [place] [address] Phone Care Team Providers Care Compounding Pharmacy Technician Name Role Phone Jf Rosa MD Unavailable Unavailable Advance Directives Directive Yes / No Effective Date File Name No Information Encounters Encounter Description Practice Location Reason(s) For Visit Diagnoses Date Provider Providers Copied on Encounter [facility], [address], [place], [place], [id number], [place] tel:[phone] SEC [facility] No Information Jun- 5-200 5 Shelley Rhoades. [address], [place], [place], [address], [place]. tel:[phone] Family History Family Member Type Diagnosis Age At Onset No Information Payers Payer name Insurance type Covered alliance party ID Authoriza tion(s) No Information Social [...]
--- OUTSIDE RECORDS SUMMARY | 2024-09-06 07:28 | XMS_ITS | Clinical Summary ---
Author Organization [facility] Address [address] [place] [address] Care Team Providers Care Supervisor Tubing Name Role Phone Mariam Fierro MD Primary Care Provider U okailelena Source Comments [facility],non-owned Affiliates and Associated Physician Practices is amultiple site organization consisting of ambulatory clinics and hospital sitesin [place], [place], [place] and [place]. This disclosure is being madepursuant to the Care Everywhere program and may not contain all information available regarding this patient. Last updated 18.[facility] Allergies Active Allergy Reactions Criticality Noted Date Comments Penicillins Urticaria 06/22/2015 Medications * Be aware that medications may not be up to date on this document. Alwaysverify current medications with the patient. 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
== END 2024-09-05 07:26 | disposition home or self-care (01) ==
PROVIDERS: PCP Family Medicine; Visit Provider Plastic Surgery
DX: M18.11 Unilateral primary osteoarthritis of first carpometacarpal joint, right hand (principal)
CPT/HCPCS: 88304

== ENCOUNTER 2024-09-17 10:52 | Outpatient (CLI) | payer MEDICARE, SELFPAY ==
--- NOTE | ~2024-09-17 | XR_ITS ---
Right Hand Technique: PA, oblique, and lateral views were obtained. Clinical History: Arthritis COMPARISON: 06/24/2024 Findings: Status post interval probable trapezium resection with suture anchors at the bases of the f irst and second metacarpals. Cast overlying the radial aspect of the hand obscures some fine bony det ail. No acute fracture evident.. Impression: Status post interval trapezium resection with postoperative change at the base of the first and secon d metacarpals, as detailed above. Reviewed, dictated and finalized at location M. Impression: Status post interval trapezium resection with postoperative change at the base of the first and second metacarpals, as detailed above.
--- OUTSIDE RECORDS SUMMARY | 2024-09-17 11:13 | XMS_ITS | Clinical Summary ---
Author Organization [facility] Address [address] [address] Care Team Providers Care Jinrikisha Driver Name Role Phone Mariam Fierro MD Primary Care Provider U okailelena Source Comments [facility],non-owned Affiliates and Associated Physician Practices is amultiple site organization consisting of ambulatory clinics and hospital sitesin [place], [place], [place] and [place]. This disclosure is being madepursuant to the Care Everywhere program and may not contain all information available regarding this patient. Last updated 18.[facility] Allergies Active Allergy Reactions Criticality Noted Date Comments Penicillins Urticaria 06/22/2015 Medications * Be aware that medications may not be up to date on this document. Alwaysverify current medications with the patient. 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 Gender Identity Not on file Sexual Orientation [...] 9:56 AM CDT Height 167.6 cm (5' 6) 08/17/2015 9:56 AM CDT Body Mass Index [...] complete this topic Insurance AETNA MEDICARE ADV SELF PAY NO INSURANCE Member Subscriber Plan / Payer (Ef fective for All Dates) Name:Aubree, Reji Charles Member ID:Not on file Relation to Subscriber:Not on file Name:AUBREE,REJI Charles Subscriber ID:Not on file (Home) Address: [address] [place] [address] Payer ID:Not on file Group ID:Not on file Type:Self Pay Address: [place], [place] [facility] Advance Directives * Full Code (Latest Code Status on File) Date Activated Date Inactivated Comments 08/06/2015 11:57 AM 08/06/2015 8:42 PM Care Teams Jinrikisha Driver Relationship Specialty Start Date End Date Mariam Fierro MD [address] [place] [address] PCP - General Family Medicine 06/17/15
--- OUTSIDE RECORDS SUMMARY | 2024-09-17 11:13 | XMS_ITS | Continuity of Care Document ---
Author Organization [facility] Address [address] [place] [address] Phone Care Team Providers Care Special Procedures Tech Name Role Phone Jf Rosa MD Unavailable Unavailable Advance Directives Directive Yes / No Effective Date File Name No Information Encounters Encounter Description Practice Location Reason(s) For Visit Diagnoses Date Provider Providers Copied on Encounter formerly [facility], [address] [place], [place], [id number], [place] tel:[phone] [address] [facility] No Information Jun- 5-200 5 Shelley Rhoades. [address] [facility] [place], [place], [place], [id number], [place]. tel:[phone] Family History Family Member Type Diagnosis Age At Onset No Information Payers Payer name Insurance type Covered libertarian ID Authoriza tion(s) No Information Social History [...]
== END 2024-09-17 10:53 | disposition home or self-care (01) ==
PROVIDERS: PCP Physician Assistant; Visit Provider Physician Assistant Surgical
DX: M18.11 Unilateral primary osteoarthritis of first carpometacarpal joint, right hand (principal)
CPT/HCPCS: 73130